=== PATIENT | female | born 1995 | race American Indian/Alaskan Native ===

== ENCOUNTER 2018-07-26 16:19 | Emergency (ER) | payer MEDICAID, OTHER, SELFPAY ==
[2018-07-26 16:22] VITALS: BP 100/60; PULSE 73; RESP 18; TEMP 36.6; O2SAT 99; BMI 21.5
--- NOTE | 2018-07-26 16:26 | ED.FEMALEGU ---
HPI - Female Genitourinary <ISAÍAS Pacheco - Last Filed: 07/26/18 22:28> General Chief complaint: Urogenital-Female Stated complaint: BLEEDING Time Seen by Provider: 07/26/18 16:26 Source: patient Mode of arrival: ambulatory Limitations: no limitations History of Present Illness HPI Narrative: Healthy 22-year-old female that is a nonsmoker here for concern of vaginal spotting since earlier today. She said that she has had a positive home test and started spider earlier today. She denies any abdominal pain or cramping. No nausea vomiting. She denies any urinary symptoms. She reports that she noticed pinkish discharge when she wiped with toilet paper while using the restroom. She denies any trauma to the abdomen. She does not know her blood type. This is her 1st . Complaint: vaginal bleeding Related Data Home Medications Medication Instructions Recorded Confirmed ALBUTEROL SULFATE (Ventolin / 2 puff INH Q4H PRN #0 08/21/10 Proventil) Fluticasone Propionate/Salme #0 08/21/10 (Advair Diskus 250/50) Allergies Allergy/AdvReac Type Severity Reaction Status Date / Time Amoxicillin Allergy Mild Uncoded 10/10/17 13:08 Penicillin Allergy Mild Uncoded 10/10/17 13:08 Review of Systems <ISAÍAS Pacheco - Last Filed: 07/26/18 22:28> Constitutional Denies chills, Denies fever(s), Denies lethargy and Denies weakness Eyes Denies change in vision, Denies eye discharge, Denies irritation and Denies loss of vision ENT Ears, Nose, Mouth, and Throat: Denies change in voice, Denies neck pain, Denies sore throat and Denies throat swelling Cardiovascular Denies chest pain, Denies irregular heart rhythm, Denies lightheadedness, Denies palpitations and Denies orthopnea Respiratory Denies wheezing Genitourinary Comments: Vaginal spotting while Musculoskeletal Denies neck pain Integumentary/Breasts Denies pruritus, Denies erythema, Denies rash and Denies wounds Neurologic Denies confusion, Denies loss of vision and Denies weakness Psychiatric Denies anxiety, Denies confusion, Denies depression, Denies homicidal ideation and Denies suicidal ideation Endocrine Denies palpitations Hematologic/Lymphatic Denies easy bruising Allergic/Immunologic Denies urticaria, Denies throat swelling and Denies wheezing Exam <ISAÍAS Pacheco - Last Filed: 07/26/18 22:28> Initial Vital Signs Initial Vital Signs: Vital Signs Temperature 97.8 F 07/26/18 16:22 Pulse Rate 73 07/26/18 16:22 Respiratory Rate 18 07/26/18 16:22 Blood Pressure 100/60 07/26/18 16:22 Pulse Oximetry 99 07/26/18 16:22 Const General: cooperative and well developed Nutritional Appearance: well nourished Orientation: alert, awake, oriented x3 and not confused [facility] Mouth: oral mucosae normal and moist mucous membranes Eyes Sclera: sclerae normal Cornea: corneas normal Pupils: PERRL EOM: EOM intact bilaterally Resp Effort & Inspection: normal respiratory effort, able to speak in complete sentences, no respiratory distress and no use of accessory muscles Auscultation: clear to auscultation bilaterally, no rales, no rhonchi and no wheezes Cardio Rate: regular rate Rhythm: regular rhythm Heart Sounds: no click, no gallops, no murmurs and no rubs Pulses: normal peripheral pulses GI Inspection: non-distended Palpation: soft, no hepatosplenomegaly, No guarding, No pulsatile mass and No tender Auscultation: normal bowel sounds Skin General: no rashes or lesions noted, No jaundice and No petechiae Neuro General: alert, oriented x3, gait normal and no focal motor deficits Speech: speech normal <José Luis Lux DO - Last Filed: 07/27/18 07:03> Initial Vital Signs Initial Vital Signs: Vital Signs Temperature 97.8 F 07/26/18 16:22 Pulse Rate 73 07/26/18 16:22 Respiratory Rate 18 07/26/18 16:22 Blood Pressure 100/60 07/26/18 16:22 Pulse Oximetry 99 07/26/18 16:22 Course <ISAÍAS Pacheco - Last Filed: 07/26/18 22:28> Orders Ordered: ED Orders 07/26/18 16:49 US OB <= 14 weeks fetus Stat 07/26/18 17:20 ABO RH Type Stat Complete Blood Count AUTO DIFF Stat Comprehensive Metabolic Panel Stat HCG Quantitative Stat Urine Microscopic Stat Vital Signs - 8 hr 07/26/18 16:22 07/26/18 18:06 07/26/18 18:33 Temperature 97.8 F 98.3 F Pulse Rate 73 66 67 Respiratory Rate 18 18 16 Blood Pressure 100/60 Blood Pressure [Right Arm] 95/41 L 109/57 L Pulse Oximetry 99 100 99 <José Luis Lux DO - Last Filed: 07/27/18 07:03> Orders Ordered: ED Orders 07/26/18 16:49 US OB <= 14 weeks fetus Stat 07/26/18 17:20 ABO RH Type Stat Complete Blood Count AUTO DIFF Stat Comprehensive Metabolic Panel Stat HCG Quantitative Stat Urine Microscopic Stat Vital Signs - 8 hr 07/26/18 16:22 07/26/18 18:06 07/26/18 18:33 Temperature 97.8 F 98.3 F Pulse Rate 73 66 67 Respiratory Rate 18 18 16 Blood Pressure 100/60 Blood Pressure [Right Arm] 95/41 L 109/57 L Pulse Oximetry 99 100 99 MDM - Female Genitourinary <ISAÍAS Pacheco - Last Filed: 07/26/18 22:28> Lab Data Result diagrams: 07/26/18 17:20 07/26/18 17:20 Lab Results 07/26/18 07/26/18 07/26/18 Range/Units 17:20 17:20 17:20 WBC 11.6 H (4.5-11.0) X10^3/uL RBC 4.10 (4.0-5.2) X10^6/uL Hgb 12.5 (12.0-16.0) g/dL Hct 37.9 (36-46) % MCV 92.4 (80-100) fL MCH 30.6 (26-34) PG MCHC 33.1 (30-36) % RDW 12.7 (11.6-14.8) % Plt Count 291 (150-400) X10^3/uL Neut % (Auto) 73.9 (50-75) % Lymph % (Auto) 17.4 L (25-40) % [place] % (Auto) 7.9 (3-14) % Eos % (Auto) 0.4 L (2-4) % Baso % (Auto) 0.4 (0-2) % Neut # (Auto) 8600 H (2887-5098) /uL Lymph # (Auto) 2000 (2227-5393) /uL [place] # (Auto) 900 (0-900) /uL Eos # (Auto) 100 (0-450) /uL Baso # (Auto) 0 (0-100) /uL Sodium 137 (137-145) mmol/L Potassium 3.9 (3.4-5.1) mmol/L Chloride 101 (98-107) mmol/L Carbon Dioxide 25 (22-32) mmol/L BUN 8 (7-17) mg/dL Creatinine 0.50 L (0.52-1.04) mg/dL Estimated GFR > 60.0 (>60) mL/min BUN/Creatinine Ratio 16.0 (6-22) Glucose 86 (70-100) mg/dL Calcium 9.4 (8.4-10.2) mg/dL Total Bilirubin 0.2 (0.2-1.3) mg/dL AST 24 (14-36) IU/L ALT 23 (9-52) IU/L Alkaline Phosphatase 50 (38-126) U/L Total Protein 7.8 (6.3-8.2) g/dL Albumin 4.5 (3.5-5.0) g/dL Globulin 3.3 (1.7-4.1) g/dL Albumin/Globulin Ratio 1.4 (1.0-2.8) HCG, Quant 15503 mIU/mL Urine RBC (0-5/HPF) Urine WBC (0-5/HPF) Ur Squamous Epith Cells Calcium Oxalate Crystal (None) Urine Bacteria (None) Ur Culture Indicated? Micro UA Comment Blood Type O Positive 07/26/18 Range/Units 17:20 WBC (4.5-11.0) X10^3/uL RBC (4.0-5.2) X10^6/uL Hgb (12.0-16.0) g/dL Hct (36-46) % MCV (80-100) fL MCH (26-34) PG MCHC (30-36) % RDW (11.6-14.8) % Plt Count (150-400) X10^3/uL Neut % (Auto) (50-75) % Lymph % (Auto) (25-40) % [place] % (Auto) (3-14) % Eos % (Auto) (2-4) % Baso % (Auto) (0-2) % Neut # (Auto) (3329-3014) /uL Lymph # (Auto) (1011-0997) /uL [place] # (Auto) (0-900) /uL Eos # (Auto) (0-450) /uL Baso # (Auto) (0-100) /uL Sodium (137-145) mmol/L Potassium (3.4-5.1) mmol/L Chloride (98-107) mmol/L Carbon Dioxide (22-32) mmol/L BUN (7-17) mg/dL Creatinine (0.52-1.04) mg/dL Estimated GFR (>60) mL/min BUN/Creatinine Ratio (6-22) Glucose (70-100) mg/dL Calcium (8.4-10.2) mg/dL Total Bilirubin (0.2-1.3) mg/dL AST (14-36) IU/L ALT (9-52) IU/L Alkaline Phosphatase (38-126) U/L Total Protein (6.3-8.2) g/dL Albumin (3.5-5.0) g/dL Globulin (1.7-4.1) g/dL Albumin/Globulin Ratio (1.0-2.8) HCG, Quant mIU/mL Urine RBC 1-5/hpf (0-5/HPF) Urine WBC 1-5/hpf (0-5/HPF) Ur Squamous Epith Cells 5-10 /hpf H Calcium Oxalate Crystal Moderate H (None) Urine Bacteria Few (2-10) H (None) Ur Culture Indicated? Culture not indicate Micro UA Comment Blood Type Point of Care Testing Test Results Positive Urine Dip Bedside Urine Glucose Negative Bedside Urine Bilirubin - Negative Bedside Urine Ketone - Negative Urine Specific [place] 1.030 Bedside Urine Occult Blood ++ Bedside Urine pH 6.0 Bedside Urine Protein +/- 15 Bedside Urine Urobilinogen - Negative Bedside Urine Nitrite - Negative Bedside Urine Leukocytes ++ 125 Esterase Imaging Data Ob ultrasound: Radiologist's impression: [address] [address] Ultrasound Report Signed Patient: Magalie Higgins [facility]#: [id number] : 1995Acct:[id number] Age/Sex: FDate of Service: 07/26/18 Loc: ED Accession Number: [id number] Procedure: US OB <= 14 weeks fetus Ordering Provider: Heriberto Lorenzo PROCEDURE: US OB <= 14 WEEKS FETUS INDICATIONS: First trimester with spotting OUTSIDE/PRIOR DATING DATA: Last menstrual period (LMP): Not available. LMP-based estimated date of delivery (LOPEZ): Not available. First dating scan (date and location): 07/26/2018. Estimated date of delivery (LOPEZ) from first dating scan: 03/16/2019. TECHNIQUE: Real-time scanning was performed of the fetus and maternal pelvic organs, with image documentation. Endovaginal scanning was also performed to better visualize the fetus and maternal ovaries. COMPARISON: None. FINDINGS: Embryo: There is an IUP. Based on the crown-rump length, the estimated gestational age is 6 weeks 5 days. cardiac activity is present there is heart rate 124 bpm. A normal yolk sac is present. No vishal-gestational bleed. Measurement variability in dating: +/- 4 weeks by LMP, +/- 7 days by mean sac diameter (use before 6 weeks gestation if crown-rump length not able to be measured), +/- 5 days by crown-rump length (up to 8 weeks 6 days gestation), +/- 7 days by crown-rump length (up to 13 weeks 6 days gestation). Maternal organs: Ovaries are normal. Limited images through the kidneys demonstrate no hydronephrosis. IMPRESSION: 1. A single living intrauterine gestation with the estimated gestational age of 6 weeks 5 days corresponding to ultrasound LOPEZ 03/16/2019. 2. No ultrasound findings to explain spotting. Dictated by: Elissa Kate M.D. on 07/26/2018 at 18:02 Approved by: Elissa Kate M.D. on 07/26/2018 at 18:05 [facility] Narrative Medical decision making narrative: CBC and Chem panel were obtained were unremarkable. HCG quant was at 84 kg. ABO Rh resulted as O positive. Ultrasound shows a 6 week 5-day-old intrauterine a single with viable heart rate. She has not established OB as of yet she is referred to OB. [id number] Tylenol as needed for any discomfort. For any worsening bleeding or problems return to the emergency room. Call OB at number provided to schedule follow-up appointment. <José Luis Lux, - Last Filed: 07/27/18 07:03> Lab Data Lab Results 07/26/18 07/26/18 07/26/18 Range/Units 17:20 17:20 17:20 WBC 11.6 H (4.5-11.0) X10^3/uL RBC 4.10 (4.0-5.2) X10^6/uL Hgb 12.5 (12.0-16.0) g/dL Hct 37.9 (36-46) % MCV 92.4 (80-100) fL MCH 30.6 (26-34) PG MCHC 33.1 (30-36) % RDW 12.7 (11.6-14.8) % Plt Count 291 (150-400) X10^3/uL Neut % (Auto) 73.9 (50-75) % Lymph % (Auto) 17.4 L (25-40) % [place] % (Auto) 7.9 (3-14) % Eos % (Auto) 0.4 L (2-4) % Baso % (Auto) 0.4 (0-2) % Neut # (Auto) 8600 H (7059-7485) /uL Lymph # (Auto) 2000 (2011-6607) /uL [place] # (Auto) 900 (0-900) /uL Eos # (Auto) 100 (0-450) /uL Baso # (Auto) 0 (0-100) /uL Sodium 137 (137-145) mmol/L Potassium 3.9 (3.4-5.1) mmol/L Chloride 101 (98-107) mmol/L Carbon Dioxide 25 (22-32) mmol/L BUN 8 (7-17) mg/dL Creatinine 0.50 L (0.52-1.04) mg/dL Estimated GFR > 60.0 (>60) mL/min BUN/Creatinine Ratio 16.0 (6-22) Glucose 86 (70-100) mg/dL Calcium 9.4 (8.4-10.2) mg/dL Total Bilirubin 0.2 (0.2-1.3) mg/dL AST 24 (14-36) IU/L ALT 23 (9-52) IU/L Alkaline Phosphatase 50 (38-126) U/L Total Protein 7.8 (6.3-8.2) g/dL Albumin 4.5 (3.5-5.0) g/dL Globulin 3.3 (1.7-4.1) g/dL Albumin/Globulin Ratio 1.4 (1.0-2.8) HCG, Quant 17363 mIU/mL Urine RBC (0-5/HPF) Urine WBC (0-5/HPF) Ur Squamous Epith Cells Calcium Oxalate Crystal (None) Urine Bacteria (None) Ur Culture Indicated? Micro UA Comment Blood Type O Positive 07/26/18 Range/Units 17:20 WBC (4.5-11.0) X10^3/uL RBC (4.0-5.2) X10^6/uL Hgb (12.0-16.0) g/dL Hct (36-46) % MCV (80-100) fL MCH (26-34) PG MCHC (30-36) % RDW (11.6-14.8) % Plt Count (150-400) X10^3/uL Neut % (Auto) (50-75) % Lymph % (Auto) (25-40) % [place] % (Auto) (3-14) % Eos % (Auto) (2-4) % Baso % (Auto) (0-2) % Neut # (Auto) (8381-5064) /uL Lymph # (Auto) (9580-0323) /uL [place] # (Auto) (0-900) /uL Eos # (Auto) (0-450) /uL Baso # (Auto) (0-100) /uL Sodium (137-145) mmol/L Potassium (3.4-5.1) mmol/L Chloride (98-107) mmol/L Carbon Dioxide (22-32) mmol/L BUN (7-17) mg/dL Creatinine (0.52-1.04) mg/dL Estimated GFR (>60) mL/min BUN/Creatinine Ratio (6-22) Glucose (70-100) mg/dL Calcium (8.4-10.2) mg/dL Total Bilirubin (0.2-1.3) mg/dL AST (14-36) IU/L ALT (9-52) IU/L Alkaline Phosphatase (38-126) U/L Total Protein (6.3-8.2) g/dL Albumin (3.5-5.0) g/dL Globulin (1.7-4.1) g/dL Albumin/Globulin Ratio (1.0-2.8) HCG, Quant mIU/mL Urine RBC 1-5/hpf (0-5/HPF) Urine WBC 1-5/hpf (0-5/HPF) Ur Squamous Epith Cells 5-10 /hpf H Calcium Oxalate Crystal Moderate H (None) Urine Bacteria Few (2-10) H (None) Ur Culture Indicated? Culture not indicate Micro UA Comment Blood Type Point of Care Testing Test Results Positive Urine Dip Bedside Urine Glucose Negative Bedside Urine Bilirubin - Negative Bedside Urine Ketone - Negative Urine Specific [place] 1.030 Bedside Urine Occult Blood ++ Bedside Urine pH 6.0 Bedside Urine Protein +/- 15 Bedside Urine Urobilinogen - Negative Bedside Urine Nitrite - Negative Bedside Urine Leukocytes ++ 125 Esterase Discharge Plan Departure Patient Disposition: Home Clinical Impression: , threatened Discharge Date/Time: 07/26/18 18:44 Interventions: ED Discharge Assessment Last Done: 07/26/18 18:44 Instructions: DI for Threatened Activity Restrictions/Additional Instructions: Laboratory results today were unremarkable. Ultrasound shows intrauterine at 6 week 5-day-old. Call OB at number provided to schedule follow-up appointment. Pelvic rest until cleared by Ob to reduce risk of a threatened . May use [id number] Tylenol as needed for any discomfort or cramping. For any worsening symptoms return to the emergency room. Your blood type is O positive. See OB next week. Prescriptions: No Action ALBUTEROL SULFATE (Ventolin / Proventil) 2 puff INH Q4H PRN Qty: 0 RF: 0 Fluticasone Propionate/Salme (Advair Diskus 250/50) Qty: 0 RF: 0 Referrals: Keya Chavez MD [Physician] - <José Luis Lux DO - Last Filed: 07/27/18 07:03> Cosign ED Attending Cosdellature Attestation: I was available for consultation during this patient's emergency department encounter
--- NOTE | 2018-07-26 16:49 | DI.US.S_ITS ---
PROCEDURE: US OB <= 14 WEEKS FETUS INDICATIONS: First trimester with spotting OUTSIDE/PRIOR DATING DATA: Last menstrual period (LMP): Not available. LMP-based estimated date of delivery (LOPEZ): Not available. First dating scan (date and location): 07/26/2018. Estimated date of delivery (LOPEZ) from first dating scan: 03/16/2019. TECHNIQUE: Real-time scanning was performed of the fetus and maternal pelvic organs, with image documentation. Endovaginal scanning was also performed to better visualize the fetus and maternal ovaries. COMPARISON: None. FINDINGS: Embryo: There is an IUP. Based on the crown-rump length, the estimated gestational age is 6 weeks 5 days. cardiac activity is present there is heart rate 124 bpm. A normal yolk sac is present. No vishal-gestational bleed. Measurement variability in dating: +/- 4 weeks by LMP, +/- 7 days by mean sac diameter (use before 6 weeks gestation if crown-rump length not able to be measured), +/- 5 days by crown-rump length (up to 8 weeks 6 days gestation), +/- 7 days by crown-rump length (up to 13 weeks 6 days gestation). Maternal organs: Ovaries are normal. Limited images through the kidneys demonstrate no hydronephrosis. IMPRESSION: 1. A single living intrauterine gestation with the estimated gestational age of 6 weeks 5 days corresponding to ultrasound LOPEZ 03/16/2019. 2. No ultrasound findings to explain spotting. Dictated by: Elissa Kate M.D. on 07/26/2018 at 18:02 Approved by: Elissa Kate M.D. on 07/26/2018 at 18:05
[2018-07-26 17:29] LABS: Add Manual Diff / Slide Review NO; Basophils Absolute Auto 0 /uL (0-100); Basophils Percent Auto 0.4 % (0-2); Eosinophils Absolute Auto 100 /uL (0-450); Eosinophils Percent Auto 0.4 % (2-4); Hematocrit 37.9 % (36-46); Hemoglobin 12.5 g/dL (12.0-16.0); Lymphocytes Absolute Auto 2000 /uL (1100-4500); Lymphocytes Percent Auto 17.4 % (25-40); Mean Corpuscular HGB Conc 33.1 % (30-36); Mean Corpuscular Hemoglobin 30.6 PG (26-34); Mean Corpuscular Volume 92.4 fL (80-100); Monocytes Absolute Auto 900 /uL (0-900); Monocytes Percent Auto 7.9 % (3-14); Neutrophils Absolute Auto 8600 /uL (1500-7000); Neutrophils Percent Auto 73.9 % (50-75); Platelet Count 291 X10^3/uL (150-400); Red Cell Distribution Width 12.7 % (11.6-14.8); White Blood Cell Count 11.6 X10^3/uL (4.5-11.0)
[2018-07-26 17:39] LABS: Alanine Aminotransferase 23 IU/L (9-52); Albumin 4.5 g/dL (3.5-5.0); Albumin Globulin Ratio 1.4 (1.0-2.8); Alkaline Phosphatase 50 U/L (38-126); Aspartate Aminotransferase 24 IU/L (14-36); Bilirubin Total 0.2 mg/dL (0.2-1.3); Blood Urea Nitrogen 8 mg/dL (7-17); Calcium 9.4 mg/dL (8.4-10.2); Carbon Dioxide 25 mmol/L (22-32); Chloride 101 mmol/L (98-107); Estimated Glomerular Filt Rate > 60.0 mL/min (>60); Globulin 3.3 g/dL (1.7-4.1); Glucose 86 mg/dL (70-100); HEMOLYSIS < 15 (0-50); Potassium 3.9 mmol/L (3.4-5.1); Sodium 137 mmol/L (137-145); Total Protein 7.8 g/dL (6.3-8.2)
[2018-07-26 17:47] LABS: Bacteria Urine Few (2-10); Calcium Oxalate Crystals Urine Moderate; RBC Urine 1-5/HPF (0-5/HPF); Squamous Epithelial Cell Urine 5-10 /HPF; WBC Urine 1-5/HPF (0-5/HPF)
[2018-07-26 18:06] VITALS: BP 95/41; PULSE 66; RESP 18; O2SAT 100
[2018-07-26 18:20] LABS: HCG Quantitative /Beta subunit 84330 mIU/mL
[2018-07-26 18:33] VITALS: BP 109/57; PULSE 67; RESP 16; TEMP 36.8; O2SAT 99
== END 2018-07-26 18:44 | disposition home or self-care (01) ==
PROVIDERS: Emergency Provider Nurse Practitioner Family; Family Provider Family Medicine
DX: O20.0 Threatened abortion (principal); Z3A.01 Less than 8 weeks gestation of pregnancy
CPT/HCPCS: 36415; 76801; 76817; 80053; 81003; 81015; 81025; 84702; 85025; 86900; 86901; 99282; 99284

== ENCOUNTER 2018-08-08 22:50 | Emergency (ER) | payer MEDICAID, OTHER, SELFPAY ==
[2018-08-08 22:50] VITALS: BP 123/70; PULSE 90; RESP 14; TEMP 36.8; O2SAT 98; BMI 21.5
[2018-08-08 23:16] LABS: Bacteria Urine Few (2-10); RBC Urine 0-1/HPF (0-5/HPF); Squamous Epithelial Cell Urine 1-5 /HPF; WBC Urine 0-1/HPF (0-5/HPF)
[2018-08-08 23:17] LABS: Culture Indicated Urine Specimen Cultured
--- NOTE | 2018-08-08 23:26 | DI.US.S_ITS ---
PROCEDURE: US OB <= 14 WEEKS FETUS INDICATIONS: BLEEDING OUTSIDE/PRIOR DATING DATA: Last menstrual period (LMP): Not available. LMP-based estimated date of delivery (LOPEZ): Not available. First dating scan (date and location): 07/26/18. Estimated date of delivery (LOPEZ) from first dating scan: 03/16/19. TECHNIQUE: Real-time scanning was performed of the fetus and maternal pelvic organs, with image documentation. Endovaginal scanning was also performed to better visualize the fetus and maternal ovaries. COMPARISON: [facility], OB <= 14 WEEKS FETUS, 07/26/2018, 17:09. FINDINGS: Embryo: The single living intrauterine gestation measures 2.2 cm crown-rump length correlating with a gestational age of 8 weeks 6 days, plus or -5 days, and heart rate is 180 beats per minute. Measurement variability in dating: +/- 4 weeks by LMP, +/- 7 days by mean sac diameter (use before 6 weeks gestation if crown-rump length not able to be measured), +/- 5 days by crown-rump length (up to 8 weeks 6 days gestation), +/- 7 days by crown-rump length (up to 13 weeks 6 days gestation). Maternal organs: Ovaries normal considering gestational status. Limited images through the kidneys demonstrate no hydronephrosis. IMPRESSION: Single living intrauterine gestation currently at 8 weeks 6 days gestational age with appropriate interval growth from the comparison study 07/26/18. Followup anatomic survey at 21 weeks gestation is recommended. Dictated by: August Davidson M.D. on 08/09/2018 at 10:29 Approved by: August Davidson M.D. on 08/09/2018 at 10:31
--- NOTE | 2018-08-08 23:36 | ED.FEMALEGU ---
HPI - Female Genitourinary General Chief complaint: Urogenital-Female Stated complaint: 8 wks , bleeding Time Seen by Provider: 08/08/18 23:22 Source: patient Mode of arrival: ambulatory History of Present Illness HPI Narrative: Patient is a 22-year-old female presents with vaginal bleeding. She is currently 8 weeks . She denies any abdominal cramping. She says she had quite a large amount of bleeding when she went to the bathroom like her menses. 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 Related Data Home Medications Medication Instructions Recorded Confirmed ALBUTEROL SULFATE (Ventolin / 2 puff INH Q4H PRN #0 08/21/10 Proventil) Fluticasone Propionate/Salme #0 08/21/10 (Advair Diskus 250/50) Previous Rx's Medication Instructions Recorded cephalexin [Keflex] 500 mg PO TID #15 cap 08/09/18 Allergies Allergy/AdvReac Type Severity Reaction Status Date / Time amoxicillin AdvReac Verified 08/08/18 23:00 Penicillins AdvReac Verified 08/08/18 23:00 Review of Systems Review of Systems ROS Unobtainable: All systems reviewed & are unremarkable except as noted in HPI and below Constitutional Denies chills, Denies fever(s), Denies lethargy and Denies weakness Cardiovascular Denies dyspnea and Denies dyspnea on exertion Respiratory Denies cough, Denies dyspnea, Denies dyspnea on exertion and Denies wheezing Gastrointestinal Gastrointestinal: Denies abdominal pain, Denies change in bowel habits, Denies diarrhea, Denies nausea and Denies vomiting Musculoskeletal Denies back pain, Denies muscle weakness, Denies numbness and Denies tingling Integumentary/Breasts Denies pruritus, Denies erythema, Denies rash and Denies wounds Neurologic Denies numbness, Denies tingling and Denies weakness Allergic/Immunologic Denies wheezing [facility] Medical History Patient denies medical problems (Acute) Social History Smoking Status: Never smoker Social History Smoking Status: Never smoker Exam Initial Vital Signs Initial Vital Signs: Vital Signs Temperature 98.3 F 08/08/18 22:50 Pulse Rate 90 08/08/18 22:50 Respiratory Rate 14 08/08/18 22:50 Blood Pressure 123/70 08/08/18 22:50 Pulse Oximetry 98 08/08/18 22:50 GENERAL: Well-appearing, well-nourished and in no acute distress. HEENT: Head atraumatic,EOMI, pupils reactive, CARDIOVASCULAR: Regular rate and rhythm without murmurs, rubs or gallops. RESPIRATORY: Breath sounds equal bilaterally, no wheezes rales or rhonchi. ABDOMEN: Soft, nontender. Normoactive bowel sounds all 4 quadrants. No guarding or rebound. : No CVA tenderness EXTREMITIES: Normal range of motion, no clubbing or edema. Neurovascularly intact NEUROLOGICAL: Alert and oriented x4.Normal gait and speech. Cranial nerves II through XII grossly intact. SKIN: Warm, dry, no laceration, no petechiae, no rashes or lesions. Course Orders Ordered: ED Orders 08/08/18 22:54 Urine Culture Stat Urine Microscopic Stat 08/08/18 23:26 US OB <= 14 weeks fetus Stat 08/08/18 23:40 Complete Blood Count AUTO DIFF Stat Comprehensive Metabolic Panel Stat HCG Quantitative Stat Discontinued Medications Sodium Chloride (Normal Saline 0.9%) 1,000 mls @ 1,000 mls/hr IV BOLUS ONE Stop: 08/09/18 00:24 Last Infusion: 08/09/18 01:00 Dose: 0 mls/hr Admin: 08/08/18 23:50 Dose: 1,000 mls/hr Vital Signs - 8 hr 08/08/18 22:50 08/09/18 00:19 08/09/18 01:32 Temperature 98.3 F 98.4 F Pulse Rate 90 81 81 Respiratory Rate 14 20 20 Blood Pressure 123/70 107/52 L Blood Pressure [Left Arm] 107/50 L Pulse Oximetry 98 100 99 MDM - Female Genitourinary Lab Data Attestation: I reviewed the patient's lab results. Result diagrams: 08/08/18 23:40 08/08/18 23:40 Lab Results 08/08/18 08/08/18 08/08/18 Range/Units 22:54 23:40 23:40 WBC 11.7 H (4.5-11.0) X10^3/uL RBC 4.02 (4.0-5.2) X10^6/uL Hgb 12.4 (12.0-16.0) g/dL Hct 36.6 (36-46) % MCV 91.1 (80-100) fL MCH 30.9 (26-34) PG MCHC 33.9 (30-36) % RDW 12.8 (11.6-14.8) % Plt Count 311 (150-400) X10^3/uL Neut % (Auto) 62.4 (50-75) % Lymph % (Auto) 25.7 (25-40) % Iron % (Auto) 10.7 (3-14) % Eos % (Auto) 0.8 L (2-4) % Baso % (Auto) 0.4 (0-2) % Neut # (Auto) 7300 H (0878-7595) /uL Lymph # (Auto) 3000 (4850-6036) /uL Iron # (Auto) 1200 H (0-900) /uL Eos # (Auto) 100 (0-450) /uL Baso # (Auto) 0 (0-100) /uL Sodium 139 (137-145) mmol/L Potassium 4.0 (3.4-5.1) mmol/L Chloride 103 (98-107) mmol/L Carbon Dioxide 22 (22-32) mmol/L BUN 9 (7-17) mg/dL Creatinine 0.50 L (0.52-1.04) mg/dL Estimated GFR > 60.0 (>60) mL/min BUN/Creatinine Ratio 18.0 (6-22) Glucose 81 (70-100) mg/dL Calcium 8.8 (8.4-10.2) mg/dL Total Bilirubin 0.2 (0.2-1.3) mg/dL AST 29 (14-36) IU/L ALT 28 (9-52) IU/L Alkaline Phosphatase 57 (38-126) U/L Total Protein 8.1 (6.3-8.2) g/dL Albumin 4.5 (3.5-5.0) g/dL Globulin 3.6 (1.7-4.1) g/dL Albumin/Globulin Ratio 1.3 (1.0-2.8) HCG, Quant 596055 mIU/mL Urine RBC 0-1/hpf (0-5/HPF) Urine WBC 0-1/hpf (0-5/HPF) Ur Squamous Epith Cells 1-5 /hpf Urine Bacteria Few (2-10) H (None) Ur Culture Indicated? Specimen cultured Blood Type 08/08/18 Range/Units 23:40 WBC (4.5-11.0) X10^3/uL RBC (4.0-5.2) X10^6/uL Hgb (12.0-16.0) g/dL Hct (36-46) % MCV (80-100) fL MCH (26-34) PG MCHC (30-36) % RDW (11.6-14.8) % Plt Count (150-400) X10^3/uL Neut % (Auto) (50-75) % Lymph % (Auto) (25-40) % Iron % (Auto) (3-14) % Eos % (Auto) (2-4) % Baso % (Auto) (0-2) % Neut # (Auto) (5246-8960) /uL Lymph # (Auto) (2314-4124) /uL Iron # (Auto) (0-900) /uL Eos # (Auto) (0-450) /uL Baso # (Auto) (0-100) /uL Sodium (137-145) mmol/L Potassium (3.4-5.1) mmol/L Chloride (98-107) mmol/L Carbon Dioxide (22-32) mmol/L BUN (7-17) mg/dL Creatinine (0.52-1.04) mg/dL Estimated GFR (>60) mL/min BUN/Creatinine Ratio (6-22) Glucose (70-100) mg/dL Calcium (8.4-10.2) mg/dL Total Bilirubin (0.2-1.3) mg/dL AST (14-36) IU/L ALT (9-52) IU/L Alkaline Phosphatase (38-126) U/L Total Protein (6.3-8.2) g/dL Albumin (3.5-5.0) g/dL Globulin (1.7-4.1) g/dL Albumin/Globulin Ratio (1.0-2.8) HCG, Quant mIU/mL Urine RBC (0-5/HPF) Urine WBC (0-5/HPF) Ur Squamous Epith Cells Urine Bacteria (None) Ur Culture Indicated? 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 It also appears that she may have a slight UTI as well. At this time recommended follow-up with her OB in regards to vaginal bleeding. Unfortunately patient left without her prescription for UTI, we tried calling of patient is by all numbers listed unfortunately no way to leave a voicemail, stating that the caller is simply unavailable. Discharge Plan Departure Patient Disposition: Home Clinical Impression: , threatened Discharge Date/Time: 08/09/18 01:34 Interventions: ED Discharge Assessment Last Done: 08/09/18 01:32 Instructions: DI for Threatened Activity Restrictions/Additional Instructions: *You have been diagnosed with threatened *What to do: HCG 175,650, ultrasound confirms a live intrauterine . Pelvic rest, nothing in her out of vagina *Continue to take medications as directed Continue vitamins *Follow up with your primary care provider in 2-3 days *Return to ER if you should have increasing abdominal pain, increasing vaginal bleeding or any new, worsening or concerning symptoms Prescriptions: New cephalexin [Keflex] 500 mg capsule 500 mg PO TID Qty: 15 RF: 0 No Action ALBUTEROL SULFATE (Ventolin / Proventil) 2 puff INH Q4H PRN Qty: 0 RF: 0 Fluticasone Propionate/Salme (Advair Diskus 250/50) Qty: 0 RF: 0
--- NOTE | 2018-08-08 23:39 | ED_ITS ---
HPI - Female Genitourinary General Chief complaint: Urogenital-Female Stated complaint: 8 wks , bleeding Time Seen by Provider: 08/08/18 23:22 Source: patient Mode of arrival: ambulatory History of Present Illness HPI Narrative: Patient is a 22-year-old female presents with vaginal bleeding. She is currently 8 weeks . She denies any abdominal cramping. She says she had quite a large amount of bleeding when she went to the bathroom like her menses. 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 Related Data Home Medications Medication Instructions Recorded Confirmed ALBUTEROL SULFATE (Ventolin / 2 puff INH Q4H PRN #0 08/21/10 Proventil) Fluticasone Propionate/Salme #0 08/21/10 (Advair Diskus 250/50) Previous Rx's Medication Instructions Recorded cephalexin [Keflex] 500 mg PO TID #15 cap 08/09/18 Allergies Allergy/AdvReac Type Severity Reaction Status Date / Time amoxicillin AdvReac Verified 08/08/18 23:00 Penicillins AdvReac Verified 08/08/18 23:00 Review of Systems Review of Systems ROS Unobtainable: All systems reviewed & are unremarkable except as noted in HPI and below Constitutional Denies chills, Denies fever(s), Denies lethargy and Denies weakness Cardiovascular Denies dyspnea and Denies dyspnea on exertion Respiratory Denies cough, Denies dyspnea, Denies dyspnea on exertion and Denies wheezing Gastrointestinal Gastrointestinal: Denies abdominal pain, Denies change in bowel habits, Denies diarrhea, Denies nausea and Denies vomiting Musculoskeletal Denies back pain, Denies muscle weakness, Denies numbness and Denies tingling Integumentary/Breasts Denies pruritus, Denies erythema, Denies rash and Denies wounds Neurologic Denies numbness, Denies tingling and Denies weakness Allergic/Immunologic Denies wheezing [facility] Medical History Patient denies medical problems (Acute) Social History Smoking Status: Never smoker Social History Smoking Status: Never smoker Exam Initial Vital Signs Initial Vital Signs: Vital Signs Temperature 98.3 F 08/08/18 22:50 Pulse Rate 90 08/08/18 22:50 Respiratory Rate 14 08/08/18 22:50 Blood Pressure 123/70 08/08/18 22:50 Pulse Oximetry 98 08/08/18 22:50 GENERAL: Well-appearing, well-nourished and in no acute distress. HEENT: Head atraumatic,EOMI, pupils reactive, CARDIOVASCULAR: Regular rate and rhythm without murmurs, rubs or gallops. RESPIRATORY: Breath sounds equal bilaterally, no wheezes rales or rhonchi. ABDOMEN: Soft, nontender. Normoactive bowel sounds all 4 quadrants. No guarding or rebound. : No CVA tenderness EXTREMITIES: Normal range of motion, no clubbing or edema. Neurovascularly intact NEUROLOGICAL: Alert and oriented x4.Normal gait and speech. Cranial nerves II through XII grossly intact. SKIN: Warm, dry, no laceration, no petechiae, no rashes or lesions. Course Orders Ordered: ED Orders 08/08/18 22:54 Urine Culture Stat Urine Microscopic Stat 08/08/18 23:26 US OB <= 14 weeks fetus Stat 08/08/18 23:40 Complete Blood Count AUTO DIFF Stat Comprehensive Metabolic Panel Stat HCG Quantitative Stat Discontinued Medications Sodium Chloride (Normal Saline 0.9%) 1,000 mls @ 1,000 mls/hr IV BOLUS ONE Stop: 08/09/18 00:24 Last Infusion: 08/09/18 01:00 Dose: 0 mls/hr Admin: 08/08/18 23:50 Dose: 1,000 mls/hr Vital Signs - 8 hr 08/08/18 22:50 08/09/18 00:19 08/09/18 01:32 Temperature 98.3 F 98.4 F Pulse Rate 90 81 81 Respiratory Rate 14 20 20 Blood Pressure 123/70 107/52 L Blood Pressure [Left Arm] 107/50 L Pulse Oximetry 98 100 99 MDM - Female Genitourinary Lab Data Attestation: I reviewed the patient's lab results. Result diagrams: 08/08/18 23:40 08/08/18 23:40 Lab Results 08/08/18 08/08/18 08/08/18 Range/Units 22:54 23:40 23:40 WBC 11.7 H (4.5-11.0) X10^3/uL RBC 4.02 (4.0-5.2) X10^6/uL Hgb 12.4 (12.0-16.0) g/dL Hct 36.6 (36-46) % MCV 91.1 (80-100) fL MCH 30.9 (26-34) PG MCHC 33.9 (30-36) % RDW 12.8 (11.6-14.8) % Plt Count 311 (150-400) X10^3/uL Neut % (Auto) 62.4 (50-75) % Lymph % (Auto) 25.7 (25-40) % [place] % (Auto) 10.7 (3-14) % Eos % (Auto) 0.8 L (2-4) % Baso % (Auto) 0.4 (0-2) % Neut # (Auto) 7300 H (4338-6189) /uL Lymph # (Auto) 3000 (9337-5037) /uL [place] # (Auto) 1200 H (0-900) /uL Eos # (Auto) 100 (0-450) /uL Baso # (Auto) 0 (0-100) /uL Sodium 139 (137-145) mmol/L Potassium 4.0 (3.4-5.1) mmol/L Chloride 103 (98-107) mmol/L Carbon Dioxide 22 (22-32) mmol/L BUN 9 (7-17) mg/dL Creatinine 0.50 L (0.52-1.04) mg/dL Estimated GFR > 60.0 (>60) mL/min BUN/Creatinine Ratio 18.0 (6-22) Glucose 81 (70-100) mg/dL Calcium 8.8 (8.4-10.2) mg/dL Total Bilirubin 0.2 (0.2-1.3) mg/dL AST 29 (14-36) IU/L ALT 28 (9-52) IU/L Alkaline Phosphatase 57 (38-126) U/L Total Protein 8.1 (6.3-8.2) g/dL Albumin 4.5 (3.5-5.0) g/dL Globulin 3.6 (1.7-4.1) g/dL Albumin/Globulin Ratio 1.3 (1.0-2.8) HCG, Quant 909392 mIU/mL Urine RBC 0-1/hpf (0-5/HPF) Urine WBC 0-1/hpf (0-5/HPF) Ur Squamous Epith Cells 1-5 /hpf Urine Bacteria Few (2-10) H (None) Ur Culture Indicated? Specimen cultured Blood Type 08/08/18 Range/Units 23:40 WBC (4.5-11.0) X10^3/uL RBC (4.0-5.2) X10^6/uL Hgb (12.0-16.0) g/dL Hct (36-46) % MCV (80-100) fL MCH (26-34) PG MCHC (30-36) % RDW (11.6-14.8) % Plt Count (150-400) X10^3/uL Neut % (Auto) (50-75) % Lymph % (Auto) (25-40) % [place] % (Auto) (3-14) % Eos % (Auto) (2-4) % Baso % (Auto) (0-2) % Neut # (Auto) (3431-9056) /uL Lymph # (Auto) (2165-7249) /uL [place] # (Auto) (0-900) /uL Eos # (Auto) (0-450) /uL Baso # (Auto) (0-100) /uL Sodium (137-145) mmol/L Potassium (3.4-5.1) mmol/L Chloride (98-107) mmol/L Carbon Dioxide (22-32) mmol/L BUN (7-17) mg/dL Creatinine (0.52-1.04) mg/dL Estimated GFR (>60) mL/min BUN/Creatinine Ratio (6-22) Glucose (70-100) mg/dL Calcium (8.4-10.2) mg/dL Total Bilirubin (0.2-1.3) mg/dL AST (14-36) IU/L ALT (9-52) IU/L Alkaline Phosphatase (38-126) U/L Total Protein (6.3-8.2) g/dL Albumin (3.5-5.0) g/dL Globulin (1.7-4.1) g/dL Albumin/Globulin Ratio (1.0-2.8) HCG, Quant mIU/mL Urine RBC (0-5/HPF) Urine WBC (0-5/HPF) Ur Squamous Epith Cells Urine Bacteria (None) Ur Culture Indicated? 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 It also appears that she may have a slight UTI as well. At this time recommended follow-up with her OB in regards to vaginal bleeding. Unfortunately patient left without her prescription for UTI, we tried calling of patient is by all numbers listed unfortunately no way to leave a voicemail, stating that the caller is simply unavailable. Discharge Plan Departure Patient Disposition: Home Clinical Impression: , threatened Discharge Date/Time: 08/09/18 01:34 Interventions: ED Discharge Assessment Last Done: 08/09/18 01:32 Instructions: DI for Threatened Activity Restrictions/Additional Instructions: *You have been diagnosed with threatened *What to do: HCG 175,650, ultrasound confirms a live intrauterine . Pelvic rest, nothing in her out of vagina *Continue to take medications as directed Continue vitamins *Follow up with your primary care provider in 2-3 days *Return to ER if you should have increasing abdominal pain, increasing vaginal bleeding or any new, worsening or concerning symptoms Prescriptions: New cephalexin [Keflex] 500 mg capsule 500 mg PO TID Qty: 15 RF: 0 No Action ALBUTEROL SULFATE (Ventolin / Proventil) 2 puff INH Q4H PRN Qty: 0 RF: 0 Fluticasone Propionate/Salme (Advair Diskus 250/50) Qty: 0 RF: 0
[2018-08-08] MEDS: SODIUM CHLORIDE 0.9% 1,000 ML 1000 ML IV (23:50)
[2018-08-08 23:52] LABS: Add Manual Diff / Slide Review NO; Basophils Absolute Auto 0 /uL (0-100); Basophils Percent Auto 0.4 % (0-2); Eosinophils Absolute Auto 100 /uL (0-450); Eosinophils Percent Auto 0.8 % (2-4); Hematocrit 36.6 % (36-46); Hemoglobin 12.4 g/dL (12.0-16.0); Lymphocytes Absolute Auto 3000 /uL (1100-4500); Lymphocytes Percent Auto 25.7 % (25-40); Mean Corpuscular HGB Conc 33.9 % (30-36); Mean Corpuscular Hemoglobin 30.9 PG (26-34); Mean Corpuscular Volume 91.1 fL (80-100); Monocytes Absolute Auto 1200 /uL (0-900); Monocytes Percent Auto 10.7 % (3-14); Neutrophils Absolute Auto 7300 /uL (1500-7000); Neutrophils Percent Auto 62.4 % (50-75); Platelet Count 311 X10^3/uL (150-400); Red Blood Cell Count 4.02 X10^6/uL (4.0-5.2); Red Cell Distribution Width 12.8 % (11.6-14.8); White Blood Cell Count 11.7 X10^3/uL (4.5-11.0)
[2018-08-09 00:06] LABS: Alanine Aminotransferase 28 IU/L (9-52); Albumin 4.5 g/dL (3.5-5.0); Albumin Globulin Ratio 1.3 (1.0-2.8); Alkaline Phosphatase 57 U/L (38-126); Aspartate Aminotransferase 29 IU/L (14-36); Bilirubin Total 0.2 mg/dL (0.2-1.3); Blood Urea Nitrogen 9 mg/dL (7-17); Calcium 8.8 mg/dL (8.4-10.2); Carbon Dioxide 22 mmol/L (22-32); Chloride 103 mmol/L (98-107); Estimated Glomerular Filt Rate > 60.0 mL/min (>60); Globulin 3.6 g/dL (1.7-4.1); Glucose 81 mg/dL (70-100); HEMOLYSIS < 15 (0-50); Sodium 139 mmol/L (137-145); Total Protein 8.1 g/dL (6.3-8.2)
[2018-08-09 00:19] VITALS: BP 107/50; PULSE 81; RESP 20; O2SAT 100
[2018-08-09 00:46] LABS: HCG Quantitative /Beta subunit 175650 mIU/mL
[2018-08-09 01:32] VITALS: BP 107/52; PULSE 81; RESP 20; TEMP 36.9; O2SAT 99
== END 2018-08-09 01:34 | disposition home or self-care (01) ==
LOC: ED 08-09 02:37
PROVIDERS: Emergency Provider Emergency Medicine; Family Provider Family Medicine
DX: O20.0 Threatened abortion (principal)
CPT/HCPCS: 36591; 76801; 76817; 80053; 81003; 81015; 84702; 85025; 87077; 87086; 96360; 99283; 99284

== ENCOUNTER → 2018-08-19 13:23 | Outpatient (CLI) | payer MEDICAID, OTHER, SELFPAY ==
[2018-08-19 17:37] LABS: HIV 1 and 2 Antibody NEGATIVE (NEGATIVE); Hep C Virus Ab w/Reflex Quant NEGATIVE s/c (NEGATIVE); Hepatitis B Surface Antigen NEGATIVE s/c (NEGATIVE); Rubella Antibody IgG 18.5 IU/mL (>15)
[2018-08-21 14:41] LABS: RPR Screen Nonreactive (Nonreactive)
== END ==
PROVIDERS: Visit Provider Specialist
DX: Z34.91 Encounter for supervision of normal pregnancy, unspecified, first trimester (principal)
CPT/HCPCS: 36415; 86592; 86703; 86762; 86787; 86803; 86850; 87340

== ENCOUNTER → 2018-09-24 11:26 | Outpatient (CLI) | payer MEDICAID, OTHER, SELFPAY ==
[2018-09-30 09:05] LABS: AFP, Serum 28.8 ng/mL; Calc Gestational Age 15.3; Cigarette Smoker N; Donated Egg NOT GIVEN; Donor Egg Age NOT GIVEN; Estriol, Free 1.19 ng/mL; Inhibin A, Dimeric 338 pg/mL; Maternal Ethnicity OTHER; Maternal Weight 121 lbs; Number of Fetuses NOT GIVEN; Previous Pregnancy Down Syndro NOT GIVEN; hCG, MoM 1.07; hCG, Serum 53.1 IU/mL
== END ==
PROVIDERS: Visit Provider Specialist
DX: Z34.02 Encounter for supervision of normal first pregnancy, second trimester (principal); Z3A.15 15 weeks gestation of pregnancy
CPT/HCPCS: 36415; 82105; 82677; 84702; 86336

== ENCOUNTER → 2018-11-18 12:05 | Outpatient (CLI) | payer MEDICAID, OTHER, SELFPAY ==
--- NOTE | 2018-11-18 12:06 | DI.US.S_ITS ---
PROCEDURE: US OB >= 14 WEEKS FETUS INDICATIONS: 20 WEEK ANATOMY OUTSIDE/PRIOR DATING DATA: Last menstrual period (LMP): None. LMP-based estimated date of delivery (LOPEZ): Unknown. First dating scan (date and location): 07/26/18. Estimated date of delivery (LOPEZ) from first dating scan: 03/16/19. TECHNIQUE: Real-time scanning was performed of the fetus, with image documentation and biometric measurements. Endovaginal scanning: Not performed COMPARISON: [facility], OB < 14 WEEKS, 08/23/2018, 16:09. [facility] OB <= 14 WEEKS FETUS, 08/08/2018, 23:52. [facility] OB <= 14 WEEKS FETUS, 07/26/2018, 17:09. [facility], OB >= 14 WEEKS FETUS, 10/18/2018, 10:57. FINDINGS: General: A single living intrauterine gestation is present. Presentation: Transverse, head maternal right. Placenta: Placental position is fundal/anterior, without previa. Amniotic fluid index: 20.8 cm, normal range is 5-24 cm. heart rate: 145 beats per minute. Maternal cervical canal: 3.7 cm long. Normal lower limit is 2.5 cm. biometrics: Biparietal diameter: 5.9 cm, 24 weeks 2 days Head circumference: 21.8 cm, 23 weeks 6 days Abdominal circumference: 19.2 cm, 23 weeks 6 days Femur length: 4.1 cm, 23 weeks 2 days Estimated gestational age from initial scan: 23 weeks one day Composite gestational age from present scan: 23 weeks 4 days Estimated weight and percentile: 618 g, 69th percentile Measurement variability for biometric dating: +/- 7 days from 14 weeks to 15 weeks 6 days gestation, +/- 10 days from 16 weeks to 21 weeks 6 days gestation, +/- 2 weeks from 22 weeks to 27 weeks 6 days gestation, +/- 3 weeks for 28 weeks gestation or later. weight reference: 4500 g or EFW >90/95% is considered macrosomia or large for gestational age. EFW <10% is small for gestational age. EFW 5% or less is considered intra-uterine growth restriction. Anatomic survey: Neuro: Ventricles are non-dilated at less than 10 mm. Cisterna magna is normal at 3-11 mm. Cerebellum is normal in size and morphology. Nuchal skin fold: Normal at less than 6 mm between 14-21 weeks gestational age. Face: Nose and lips, facial profile are normal. Spine: Not well-visualized due to gestational position Heart: 4-chambered heart is present, with normal ventricular outflow tracts. Diaphragm: Diaphragm is intact. Stomach: Left-sided stomach is present. Kidneys: No hydronephrosis. Normal is less than 5 mm in 2nd trimester, less than 7 mm in 3rd trimester. Cord: 3-vessel cord has orthotopic insertion. Bladder: Normal in size. Extremities: All 4 extremities identified. IMPRESSION: Single living intrauterine fetus in transverse presentation demonstrating expected interval growth as above. spine not well visualized due to gestational position. Remaining anatomic survey within normal limits. Dictated by: Markell Young M.D. on 11/18/2018 at 16:16 Approved by: Markell Young M.D. on 11/18/2018 at 16:19
== END ==
PROVIDERS: Visit Provider Specialist
DX: Z34.02 Encounter for supervision of normal first pregnancy, second trimester (principal); Z3A.23 23 weeks gestation of pregnancy
CPT/HCPCS: 76811

== ENCOUNTER 2018-12-02 21:23 | Emergency (ER) | payer MEDICAID, OTHER, SELFPAY ==
[2018-12-02 21:28] VITALS: BP 95/45; PULSE 109; RESP 18; TEMP 36.7; O2SAT 98
--- NOTE | 2018-12-02 21:49 | ED.URI ---
HPI - URI/Sore Throat General Chief Complaint: Upper Respiratory Symptoms Stated Complaint: cough chest pain 24wks Time Seen by Provider: 12/02/18 21:30 Source: patient and family Mode of arrival: ambulatory Limitations: no limitations History of Present Illness HPI Narrative: 23-year-old female nonsmoker is a at 24 weeks with unremarkable thus far. Patient has a runny nose, nasal congestion, head pressure and cough for the past few days. She denies any production to her cough and has no fever or chills. She denies dizziness, weakness or lightheadedness. She does have a sharp and stabbing anterior chest pain with cough. MD Complaint: cough, rhinorrhea and nasal congestion Onset (ago): day(s) Duration: constant Severity: moderate Relieving factors: nothing Description of mucous: clear Able to tolerate fluids by mouth: Yes Associated symptoms: rhinorrhea Related Data Home Medications Medication Instructions Recorded Confirmed ALBUTEROL SULFATE (Ventolin / 2 puff INH Q4H PRN #0 08/21/10 Proventil) Fluticasone Propionate/Salme #0 08/21/10 (Advair Diskus 250/50) doxylamine succinate 25 mg tablet 25 mg PO BEDTIME PRN 08/19/18 08/19/18 pyridoxine (vitamin B6) 50 mg 50 mg PO DAILY 08/19/18 08/19/18 capsule Previous Rx's Medication Instructions Recorded 1 tab PO DAILY #90 tab 08/23/18 vitamin,calcium,tdrzzjvc-bheq-nkbla acid tablet ondansetron 4 mg disintegrating 4 mg PO Q6-8H PRN #20 tab 09/24/18 tablet omeprazole 20 mg capsule,delayed 20 mg PO DAILY #30 cap 11/14/18 release Allergies Allergy/AdvReac Type Severity Reaction Status Date / Time amoxicillin AdvReac Verified 08/08/18 23:00 Penicillins AdvReac Verified 08/08/18 23:00 Review of Systems Constitutional Denies chills, Denies fever(s), Denies lethargy and Denies weakness Eyes Denies change in vision, Denies eye discharge, Denies irritation and Denies loss of vision ENT Ears, Nose, Mouth, and Throat: Denies change in voice, Denies neck pain, Reports sinus pressure and Denies sore throat Cardiovascular Reports chest pain, Denies irregular heart rhythm, Denies lightheadedness, Denies palpitations, Denies dyspnea, Denies dyspnea on exertion and Denies orthopnea Respiratory Reports cough, Denies dyspnea, Denies dyspnea on exertion and Denies wheezing Gastrointestinal Gastrointestinal: Denies abdominal pain, Denies change in bowel habits, Denies diarrhea, Denies nausea and Denies vomiting Genitourinary Denies hematuria, Denies flank pain, Denies urinary incontinence and Denies urinary urgency Musculoskeletal Denies neck pain Integumentary/Breasts Denies pruritus, Denies erythema, Denies rash and Denies wounds Neurologic Denies confusion, Denies loss of vision and Denies weakness Psychiatric Denies anxiety, Denies confusion, Denies depression, Denies homicidal ideation and Denies suicidal ideation Endocrine Denies palpitations Hematologic/Lymphatic Denies easy bruising Allergic/Immunologic Denies wheezing [facility] Medical History Patient denies medical problems (Acute) Social History Smoking Status: Never smoker Social History Smoking Status: Never smoker Exam Narrative Exam Narrative: GEN: AOx3 and in mild distress EYES: Pupils are equal, round, and reactive to light and accommodation. Extraoccular muscles are intact bilaterally. There is no subconjunctival hemorrhage or exudate. ENT: clear nasal drainage. Clear post nasal drip. CHEST: Sharp stabbing pain is reproducible on palpation Lungs are clear to auscultation bilaterally and free of wheezes, rales, or rhonchi. Heart rate is regular rhythm, there are no murmurs, clicks, rubs, or gallops. There is no chest wall tenderness. ABD: Abdomen is soft and nontender. There is no guarding or rebound. Bowel sounds are normal in all 4 quadrants. There is no mass or organomegaly. EXT: Full painless ROM of all extremities with no loss of sensation or strength. SKIN: Warm, pink, and dry. No erythema or rash Initial Vital Signs Initial Vital Signs: Vital Signs Temperature 98.0 F 12/02/18 21:28 Pulse Rate 109 H 12/02/18 21:28 Respiratory Rate 18 12/02/18 21:28 Blood Pressure 95/45 L 12/02/18 21:28 Pulse Oximetry 98 12/02/18 21:28 Course Vital Signs - 8 hr 12/02/18 21:28 Temperature 98.0 F Pulse Rate 109 H Respiratory Rate 18 Blood Pressure 95/45 L Pulse Oximetry 98 Discharge Plan Departure Patient Disposition: Home Clinical Impression: Acute costochondritis Upper respiratory infection Qualifiers: URI type: unspecified viral URI Qualified Code(s): J06.9 - Acute upper respiratory infection, unspecified Discharge Date/Time: 12/02/18 22:07 Interventions: ED Discharge Assessment Last Done: 12/02/18 22:04 Instructions: DI for Costochondritis Activity Restrictions/Additional Instructions: *You have been diagnosed with [ acute viral upper respiratory infection and chest wall pain ] *What to do: *Take medications as directed: Over the counter tylenol is recommended for the treatment of your headache and chest wall pain. Over the counter antihistamines such as benadryl (diphenhydramine) or zyrtec (cetirizine) will help dry the secretions which are the likely cause of your headache, nasal congestion, and cough. *Follow up with your primary care provider in 2-3 days, call for an appointment. Let them know you were seen in the Emergency Department and that we ask that you be seen in follow up *Return to ER if you should have any new, worsening or concerning symptoms, such as [cough with bloody sputum, worsening chest pain, shortness of breath or other bothersome symptoms ] Prescriptions: No Action ALBUTEROL SULFATE (Ventolin / Proventil) 2 puff INH Q4H PRN Qty: 0 RF: 0 Fluticasone Propionate/Salme (Advair Diskus 250/50) Qty: 0 RF: 0 Unisom (doxylamine) 25 mg tablet 25 mg PO BEDTIME PRNRF: 0 pyridoxine (vitamin B6) 50 mg capsule 50 mg PO DAILY RF: 0 ondansetron 4 mg tablet,disintegrating 4 mg PO Q6-8H PRN (Reason: nausea and vomiting) Qty: 20 RF: 2 omeprazole 20 mg capsule,delayed release(DR/EC) 20 mg PO DAILY Qty: 30 RF: 3 prenat.vits,abbie,dpc-yfuv-kmwjd tablet 1 tab PO DAILY Qty: 90 RF: 3
== END 2018-12-02 22:07 | disposition home or self-care (01) ==
PROVIDERS: Emergency Provider Emergency Medicine
DX: J06.9 Acute upper respiratory infection, unspecified (principal); M94.0 Chondrocostal junction syndrome [Tietze]; Z33.1 Pregnant state, incidental
CPT/HCPCS: 99282

== ENCOUNTER → 2018-12-13 12:13 | Outpatient (CLI) | payer MEDICAID, OTHER, SELFPAY ==
[2018-12-13 14:35] LABS: Hematocrit 32.7 % (36-46)
[2018-12-13 14:57] LABS: GTT (PREG) 1 Hour PP 50gm Dose 70 mg/dL (76-139)
[2018-12-13 16:40] LABS: Urine N gonorrhoeae NOT DETECTED
[2018-12-13 16:41] LABS: Urine Chlamydia NOT DETECTED
== END ==
PROVIDERS: Visit Provider Specialist
DX: Z34.03 Encounter for supervision of normal first pregnancy, third trimester (principal)
CPT/HCPCS: 36415; 82950; 85014; 85018; 87491; 87591

== ENCOUNTER → 2019-02-21 14:41 | Outpatient (CLI) | payer MEDICAID, OTHER, SELFPAY ==
[2019-02-22 15:22] LABS: Strep Grp B PCR NEG for Grp B Strep
== END ==
PROVIDERS: Visit Provider Specialist
DX: Z34.83 Encounter for supervision of other normal pregnancy, third trimester (principal); Z3A.35 35 weeks gestation of pregnancy
CPT/HCPCS: 87653

== ENCOUNTER 2019-02-27 07:17 | Outpatient (CLI) | payer MEDICAID, OTHER, SELFPAY ==
--- NOTE | 2019-02-27 09:25 | PM.OBTRLD ---
Visit Information Visit Information Date of evaluation: 02/27/19 Primary OB Provider: Radha Bautista Reason for Evaluation: Yes other Comments/Additional reasons for admission: Patient with breech presentation at last office visit was scheduled for version today Vital Signs Vital Signs: Blood pressure 106/60 PFSH Social History Smoking Status: Never smoker Evaluation Evaluation Baseline heart rate: 130 Variability: Moderate (11-25) monitor accelerations: Present monitor decelerations: Absent Contraction Frequency (minutes): 0 Comments: Ultrasound the infant is now vertex Diagnosis, Plan/Disposition Plan/Disposition Plan: Patient with breech presentation on last office visit now vertex no need for version at this time OB Disposition: home
== END 2019-02-27 07:50 | disposition home or self-care (01) ==
LOC: OB 03-04 13:40
PROVIDERS: Visit Provider Specialist
DX: O32.1XX0 Maternal care for breech presentation, not applicable or unspecified (principal)
CPT/HCPCS: 59025; 76815; G0378; G0379

== ENCOUNTER 2019-03-10 13:47 | Outpatient (CLI) | payer MEDICAID, OTHER, SELFPAY | END 2019-03-10 14:00 | disposition home or self-care (01) | LOC: LABOR 14:19 → OB 03-13 07:46 | PROVIDERS: Visit Provider Specialist | DX: O48.0 Post-term pregnancy (principal); Z3A.41 41 weeks gestation of pregnancy | CPT/HCPCS: 59025; G0378; G0379 ==

== ENCOUNTER 2019-03-17 13:48 | Outpatient (CLI) | payer MEDICAID, OTHER, SELFPAY ==
--- NOTE | 2019-03-17 14:14 | P.TNLD_ITS ---
Visit Information Visit Information Date of evaluation: 03/17/19 Primary OB Provider: Radha Bautista Reason for Evaluation: Yes non-stress test non-stress test reason: other (Postdates) [facility] Medical History (Updated 03/17/19 @ 14:15 by Radha Bautista MD) Breech presentation (Acute) Patient denies medical problems (Acute) Social History Smoking Status: Never smoker Social History Smoking Status: Never smoker Evaluation Evaluation Baseline heart rate: 130 Variability: Moderate (11-25) monitor accelerations: Present monitor decelerations: Absent Contraction Frequency (minutes): 0 Category of Tracing: I Diagnosis, Plan/Disposition Final Diagnosis (1) Post-dates : Current Visit: Yes Status: Acute Plan/Disposition Plan: Reactive nonstress test. Patient is scheduled for postdates induction tomorrow night OB Disposition: home
== END 2019-03-17 14:20 | disposition home or self-care (01) ==
LOC: OB 03-18 13:18
PROVIDERS: Visit Provider Specialist
CPT/HCPCS: 59025; G0378; G0379

== ENCOUNTER 2019-03-18 18:49 | Inpatient (IN) | payer MEDICAID, OTHER, SELFPAY ==
[2019-03-18] MEDS: miSOPROStol 25 MCG TABLET VAG (19:40)
[2019-03-18] MEDS: ZOLPIDEM 5 MG TABLET PO (23:16)
[2019-03-18 23:32] LABS: Add Manual Diff / Slide Review NO; Basophils Absolute Auto 0 /uL (0-100); Basophils Percent Auto 0.6 % (0-2); Eosinophils Absolute Auto 100 /uL (0-450); Eosinophils Percent Auto 0.8 % (2-4); Hematocrit 29.9 % (36-46); Lymphocytes Absolute Auto 2000 /uL (1100-4500); Lymphocytes Percent Auto 23.5 % (25-40); Mean Corpuscular HGB Conc 33.3 % (30-36); Mean Corpuscular Hemoglobin 27.2 PG (26-34); Mean Corpuscular Volume 81.6 fL (80-100); Monocytes Absolute Auto 400 /uL (0-900); Monocytes Percent Auto 5.3 % (3-14); Neutrophils Absolute Auto 5800 /uL (1500-7000); Neutrophils Percent Auto 69.8 % (50-75); Platelet Count 313 X10^3/uL (150-400); Red Blood Cell Count 3.66 X10^6/uL (4.0-5.2); White Blood Cell Count 8.3 X10^3/uL (4.5-11.0)
[2019-03-19 00:22] VITALS: BP 116/80
--- NOTE | 2019-03-19 08:08 | PM.OBHP.1 ---
OB HPI Date/Time Date of admission: 03/18/19 Date Patient Seen: 03/19/19 Time Patient Seen: 08:08 History of Present Condition Chief complaint: OBSERVATION : 1 Para: 0 Estimated Date of Delivery: 03/11/19 Estimated Gestational Age (weeks): 41 Narrative: Magalie Higgins is a 23 year old female admitted for postdates induction Indications Indication for induction OB: post dates History of Present care: good care, initiated at week # (11), number of visits (13) and pounds weight gain (24) Dating criteria: LMP confirmed by 1st trimester US Ultrasounds: normal mid trimester US Obstetrical complications: none Medical complications: none Preadmission Labs Blood type: O (+) positive -: Antibody screen: negative, GBS status: negative, HBsAG: negative, HIV: negative and RPR/VDLR: negative -: Chlamydia screen: not detected and Gonorrhea screen: not detected -: Rubella: immune and Varicella: immune HCAB: negative PAP: Normal Quad screen: Normal 1 hr GTT: 70 Evaluation Evaluation Baseline heart rate: 145 Variability: Moderate (11-25) monitor accelerations: Present monitor decelerations: Absent Contraction Frequency (minutes): 5 Uterine Contraction Intensity: Mild Category of Tracing: I Cervical dilation (cm): 2 Cervical effacement (%): 50 station: -2 Laboratory results: Laboratory Tests 03/18/19 03/18/19 23:05 23:05 WBC 8.3 RBC 3.66 L Hgb 10.0 L Hct 29.9 L MCV 81.6 MCH 27.2 MCHC 33.3 RDW 14.0 Plt Count 313 Neut % (Auto) 69.8 Lymph % (Auto) 23.5 L [place] % (Auto) 5.3 Eos % (Auto) 0.8 L Baso % (Auto) 0.6 Neut # (Auto) 5800 Lymph # (Auto) 2000 [place] # (Auto) 400 Eos # (Auto) 100 Baso # (Auto) 0 Blood Type O Positive Antibody Screen Negative [facility] Medical History (Updated 03/19/19 @ 08:20 by Radha Bautista MD) Patient denies medical problems (Acute) Social History Smoking Status: Never smoker Social History (Reviewed 12/03/18 @ 01:32 by BERE Sorensen Smoking Status: Never smoker Meds Home Medications and Allergies Home Medications Medication Instructions Recorded Confirmed Type prenat.vits,abbie,dky-zgac-zzjkn 1 tab PO DAILY #90 tab 08/23/18 Rx Allergies Allergy/AdvReac Type Severity Reaction Status Date / Time amoxicillin AdvReac Verified 08/08/18 23:00 Penicillins AdvReac Verified 08/08/18 23:00 Review of Systems Review of Systems Narrative: Good movement no rupture membranes no signs or symptoms of preeclampsia ROS Unobtainable: All systems reviewed & are unremarkable except as noted in HPI and below Exam Vital Signs (past 8 hours): Blood pressure 97/53, pulse 68, temperature 36.1?- 03/19/19 00:22 Blood Pressure 116/80 Narrative Exam Narrative: HEENT exam within normal limits except for poor dentition. No thyromegaly. Lungs are clear to auscultation percussion. Heart is regular rate and rhythm no S3-S4 murmurs. Fetus is vertex. Cervix still unfavorable after prostaglandins so Coelho bulb was placed through the cervical os and inflated with 30 cc of saline. Extremities without edema and nontender, normal DTRs. Objective Labs Result Diagrams: 03/18/19 23:05 Labs: Laboratory Results - last 24 hr 03/18/19 03/18/19 23:05 23:05 WBC 8.3 RBC 3.66 L Hgb 10.0 L Hct 29.9 L MCV 81.6 MCH 27.2 MCHC 33.3 RDW 14.0 Plt Count 313 Neut % (Auto) 69.8 Lymph % (Auto) 23.5 L [place] % (Auto) 5.3 Eos % (Auto) 0.8 L Baso % (Auto) 0.6 Neut # (Auto) 5800 Lymph # (Auto) 2000 [place] # (Auto) 400 Eos # (Auto) 100 Baso # (Auto) 0 Blood Type O Positive Antibody Screen Negative Assessment and Plan Assessment and Plan Assessment and Plan narrative: 41 week gestation for postdates induction she received Cytotec overnight with some minimal change in her cervix. Coelho bulb was placed and she will be begun on Pitocin.
[2019-03-19] MEDS: LACTATED RINGERS 1,000 ML 100 ML IV ×3 (09:03→18:07)
[2019-03-19] MEDS: OXYTOCIN PREMIX 30 UNIT/500 ML PLAST..BAG IV (09:03)
[2019-03-19] MEDS: fentaNYL 100 MCG/2 ML INJ IV ×2 (12:58→14:02)
--- NOTE | 2019-03-19 22:45 | PM.OBPRVD ---
Labor & Delivery Delivery date: 03/19/19 Intrapartal events: Extended Tachycardia Cervical ripening method: per misoprostal protocol (Followed by Coelho bulb) Induction method: per pitocin protocol Delivery augmentation: rupture of membranes Delivery monitor: external FHT and external uterine Route of delivery: vacuum extraction Indication for instrumentation: nonreassuring FHR tracing L&D Laceration Description: Vaginal - 2nd Degree (Bilateral) Delivery repair: chromic (3-0) Estimated blood loss (mL): 300 Anesthesia type: Epidural Narrative: Patient was admitted for induction for 41 weeks gestation. The patient received Cytotec beginning on 03/18/2019. She was willie mildly but still had a very thick cervix. Coelho bulb was placed and it fell out of 2 hours later. She was a round for meconium-stained fluid. Pitocin was started. Patient received an epidural catheter for pain control. The initial part of labor heart tones were category 1 to category 2. Patient had slow progress from 7 cm to complete. In that time the heart tones baseline increased to 180. There were deep and late decelerations with pushing. Mother was afebrile. Decision was made to expedite delivery. Initial attempt was to place forceps but I could not place them appropriately so that was abandoned. The vacuum was placed with the 1st placement not staying in place due to the amount of hair. A 2nd vacuum was placed and with a total of 3 pushes the babies head was delivered to the perineum. The head was delivered. There was approximately 1 minute shoulder dystocia however most of that was probably due to the ineffective pushing by the mother. The was delivered and initially placed on maternal abdomen but was quickly placed on the warmer. Resuscitation was performed. The placenta delivered spontaneously, intact, with 3 vessels. Patient had second-degree bilateral sidewall vaginal tears that were repaired with 3 0 chromic sutures. Estimated blood loss 300 cc. The was returned from the warmer and both infant and mother doing well. Baby weighed 8 lb 3 oz. [place] Baby 1: Infant gender: Female Presentation: vertex position: Right Occiput Anterior Placenta delivery description: Spontaneous cord vessel description: 3 Vessels score (1 min): 6 score (5 min): 8 Plan for aftercare: Routine post care
[2019-03-20] MEDS: IBUPROFEN 600 MG TABLET PO ×2 (02:25→08:07)
[2019-03-20 05:18] LABS: Basophils Absolute Auto 100 /uL (0-100); Basophils Percent Auto 0.3 % (0-2); Eosinophils Absolute Auto 0 /uL (0-450); Hematocrit 23.9 % (36-46); Lymphocytes Absolute Auto 1200 /uL (1100-4500); Lymphocytes Percent Auto 4.8 % (25-40); Mean Corpuscular HGB Conc 33.4 % (30-36); Mean Corpuscular Hemoglobin 26.8 PG (26-34); Mean Corpuscular Volume 80.4 fL (80-100); Monocytes Absolute Auto 1500 /uL (0-900); Monocytes Percent Auto 6.2 % (3-14); Neutrophils Absolute Auto 22100 /uL (1500-7000); Neutrophils Percent Auto 88.7 % (50-75); Red Blood Cell Count 2.97 X10^6/uL (4.0-5.2); Red Cell Distribution Width 14.1 % (11.6-14.8)
[2019-03-20 06:34] LABS: Add Manual Diff / Slide Review SLIDE REVIEW
[2019-03-20 06:36] LABS: Platelet Estimate Adequate on smear; RBC Morphology Normal Morphology
[2019-03-20 06:37] LABS: Platelet Count 234 X10^3/uL (150-400)
--- NOTE | 2019-03-20 07:52 | PM.OBDS.1 ---
Discharge Providers Provider Date of admission: 03/18/19 18:49 Discharge Date: 03/20/19 Consults: 03/20/19 00:22 Consult to Guest Associate Routine Comment: Discharge provider: Radha Bautista MD Summary Discharge Diagnosis (1) Vacuum-assisted vaginal delivery: Status: Acute (2) Anemia: Status: Acute (3) Post-dates : Status: Resolved Time Spent with Patient Time attestation: Total time spent providing and/or coordinating discharge services: Objective Labs Result Diagrams: 03/20/19 04:45 Labs: Laboratory Results - last 24 hr 03/20/19 04:45 WBC 25.0 H D RBC 2.97 L Hgb 8.0 L Hct 23.9 L MCV 80.4 MCH 26.8 MCHC 33.4 RDW 14.1 Plt Count 234 Neut % (Auto) 88.7 H Lymph % (Auto) 4.8 L [place] % (Auto) 6.2 Eos % (Auto) 0.0 L Baso % (Auto) 0.3 Neut # (Auto) 72016 H Lymph # (Auto) 1200 [place] # (Auto) 1500 H Eos # (Auto) 0 Baso # (Auto) 100 Platelet Estimate Adequate on smear RBC Morphology Normal morphology Exam Vital Signs (past 8 hours): Blood pressure 98/57, pulse of 87, temperature 97? point Narrative Exam Narrative: Patient's abdomen is soft, nontender. Uterus is firm, at U, nontender. Patient has labial swelling, mild lochia. Extremities without edema and nontender. Discharge Plan Discharge Med Rec/Prescriptions Prescriptions: New ibuprofen 600 mg Tablet 600 mg PO Q6HR PRN (Reason: Pain, Mild (1-3)) Qty: 20 RF: 0 Continued prenat.vits,abbie,bqc-vczd-mzuba tablet 1 tab PO DAILY Qty: 90 RF: 3 Follow up/Referrals: Radha Bautista MD [Physician] - 1 Month Discharge Orders: Discharge (Order); Ordered 03/20/19 Ordered By: Radha Bautista Provider Discharge Instructions Diet: Regular Activity: Nothing in vagina for 4 weeks Skin/Wound/Dressing Care Report to your healthcare provider any signs of infection, such as:: chills, fever and increased pain Discharge Data Attending Provider: Radha Bautista Admit Date/Time: 03/18/19 18:49
[2019-03-20] MEDS: DOCUSATE 250 MG CAPSULE PO (08:07)
[2019-03-20] MEDS: DERMOPLAST SPRAY 20% 60 ML 1 SPRAY TOP (08:07)
[2019-03-20 08:37] VITALS: BP 107/67; PULSE 106; RESP 17; TEMP 36.9
== END 2019-03-20 09:51 | disposition home or self-care (01) | DRG 807 ==
PROVIDERS: Admitting Provider Specialist; Visit Provider Specialist
DX: O48.0 Post-term pregnancy (principal); Z37.0 Single live birth; Z3A.41 41 weeks gestation of pregnancy; O76 Abnormality in fetal heart rate and rhythm complicating labor and delivery; O77.0 Labor and delivery complicated by meconium in amniotic fluid; O66.0 Obstructed labor due to shoulder dystocia; O70.1 Second degree perineal laceration during delivery; O99.02 Anemia complicating childbirth
CPT/HCPCS: 01967; 36415; 59025; 59050; 59410; 85025; 86850; 86900; 86901; G0379; J2590; J3010

== ENCOUNTER → 2020-12-14 17:02 | Outpatient (CLI) | payer MEDICAID, OTHER, SELFPAY ==
--- NOTE | 2020-12-14 | DI.RAD.S_ITS ---
PROCEDURE: XR ABDOMEN 1V INDICATIONS: abdominal cramping TECHNIQUE: One view of the abdomen acquired. COMPARISON: None. FINDINGS: Surgical changes and devices: None. Bowel: Bowel gas pattern is normal except for right and transverse colonic mild obstipation. Soft tissues: No suspicious abdominal calcifications. Visualized solid organ contours appear normal in size. Bones: No suspicious bony lesions. IMPRESSION: Mild colonic obstipation, no sign of intestinal obstruction or perforation. Dictated by: August Davidson M.D. on 12/15/2020 at 7:28 Approved by: August Davidson M.D. on 12/15/2020 at 7:29
== END ==
PROVIDERS: Referring Provider Family Medicine; Visit Provider Family Medicine
DX: R10.9 Unspecified abdominal pain (principal); K59.00 Constipation, unspecified
CPT/HCPCS: 74018

== ENCOUNTER 2021-05-12 09:34 | Emergency (ER) | payer MEDICAID, OTHER, SELFPAY ==
[2021-05-12 09:38] VITALS: BP 128/89; PULSE 96; RESP 14; TEMP 36.6; O2SAT 98; BMI 23.0
[2021-05-12 10:34] LABS: COVID19 -Nasal RAPID Negative (Negative)
--- NOTE | 2021-05-12 10:34 | ED_ITS ---
HPI - URI/Sore Throat General Chief Complaint: Upper Respiratory Symptoms Stated Complaint: Cough, sore throat x 5 days Time Seen by Provider: 05/12/21 10:12 Source: patient Mode of arrival: Ambulatory Limitations: no limitations History of Present Illness HPI Narrative: Patient is a 25-year-old female no medical history presenting today with 2 days of body aches cough and sore throat. She is fully vaccinated with COVID. She has mild headache. She with the cough seems to be the worst. She is short of breath only when she coughs. She is not coughing anything up. Related Data Previous Rx's Medication Instructions Recorded prenat.vits,abbie,tjv-nuiu-gsyqf 1 tab PO DAILY #90 tab 08/23/18 ibuprofen 600 mg tablet 600 mg PO Q6HR PRN #20 tab 03/20/19 albuterol sulfate 90 mcg/actuation 2 puff INHALATION Q4-6H PRN #8.5 05/12/21 aerosol inhaler gram Allergies Allergy/AdvReac Type Severity Reaction Status Date / Time amoxicillin AdvReac Verified 05/12/21 09:44 Penicillins AdvReac Verified 05/12/21 09:44 Review of Systems Review of Systems Narrative: GENERAL: Denies chills,fever HEENT: See HPI RESPIRATORY: Denies dyspnea, cough, wheezing CARDIOVASCULAR: Denies chest pain, palpitations GASTROINTESTINAL: Denies nausea, vomiting MUSCULOSKELETAL: Denies extremity pain, injury SKIN: No rash, no laceration, no pruritus NEUROLOGIC: Denies weakness, dizziness, headache, numbness 8 point review of systems is negative except for those stated above and HPI Patient History Medical History Patient denies medical problems Vacuum-assisted vaginal delivery Social History Smoking Status: Never smoker Smoking Status: Never smoker alcohol intake frequency: holidays/special occasions only Substance Use Type: does not use Exam Initial Vital Signs Initial Vital Signs: Vital Signs Temperature 97.9 F 05/12/21 09:38 Pulse Rate 96 H 05/12/21 09:38 Respiratory Rate 14 05/12/21 09:38 Blood Pressure 128/89 05/12/21 09:38 Pulse Oximetry 98 05/12/21 09:38 GENERAL: 25-year-old female appears to not feel well HEENT: Head atraumatic,EOMI, pupils reactive, face symmetric, neck supple PHARYNX: No erythema, no tonsillar exudate, no cervical lymphadenopathy CARDIOVASCULAR: Regular rate and rhythm without murmurs, rubs or gallops. RESPIRATORY: Breath sounds equal bilaterally, no wheezes rales or rhonchi. EXTREMITIES: Normal range of motion, no clubbing or edema. Neurovascularly intact NEUROLOGICAL: Alert and oriented x4. SKIN: Warm, dry, no laceration, no petechiae, no rashes or lesions. Course Orders Ordered: ED Orders 05/12/21 10:13 COVID19 -Nasal swab/Pre-Proc Stat Vital Signs Vital signs: Vital Signs - 8 hr 05/12/21 09:38 05/12/21 10:52 Temperature 97.9 F Pulse Rate 96 H 77 Respiratory Rate 14 Blood Pressure 128/89 112/69 Pulse Oximetry 98 98 MDM - URI/Sore Throat Lab Data Labs: Lab Results 05/12/21 Range/Units 10:13 SARS-CoV-2 (PCR) Negative (Negative) Point of Care Testing Rapid Strep A Negative MDM Narrative Medical decision making narrative: Patient has mild upper respiratory like symptoms negative strep and negative COVID. No significant shortness of breath. She is given albuterol spacer and teaching and I recommend she have repeat COVID testing in about 2-3 days. Discharge Plan Departure Patient Disposition: Home Clinical Impression: Upper respiratory infection Instructions: Common Cold Activity Restrictions/Additional Instructions: *You have been diagnosed with upper respiratory infection *What to do: At this time likely have a viral infection. However I do recommend that you be retested for COVID in about 3 days specially fever still having symptoms. Today your COVID test and strep test are negative. Recommend hot tea with honey to help with cough in soothe your throat. *Continue to take medications as directed Albuterol inhaler 1-2 puffs only if needed for coughing--> SENT TO [facility] *Follow up with your primary care provider in 2-3 days *Return to ER if you should have increasing shortness of breath, fever, body aches or any new, worsening or concerning symptoms Prescriptions: New albuterol sulfate 90 mcg/actuation HFA aerosol inhaler 2 puff INHALATION Q4-6H PRN (Reason: shortness of breath or wheezing) Qty: 8.5 RF: 0 No Action prenat.vits,abbie,fzq-jznc-rvemz tablet 1 tab PO DAILY Qty: 90 RF: 3 ibuprofen 600 mg Tablet 600 mg PO Q6HR PRN (Reason: Pain, Mild (1-3)) Qty: 20 RF: 0
[2021-05-12 10:52] VITALS: BP 112/69; PULSE 77; O2SAT 98
== END 2021-05-12 10:53 | disposition home or self-care (01) ==
PROVIDERS: Emergency Provider Emergency Medicine
DX: J06.9 Acute upper respiratory infection, unspecified (principal); Z20.822 Contact with and (suspected) exposure to COVID-19
CPT/HCPCS: 87635; 87880; 99281; 99282; C9803

== ENCOUNTER 2022-06-17 14:44 | Emergency (ER) | payer MEDICAID, OTHER, SELFPAY ==
[2022-06-17 14:49] VITALS: BP 100/68; PULSE 98; RESP 18; TEMP 37.8; O2SAT 97; BMI 22.8
[2022-06-17 15:16] VITALS: TEMP 37.8
[2022-06-17] MEDS: IBUPROFEN 400 MG TABLET 800 MG PO (15:16)
--- NOTE | 2022-06-17 15:32 | ED_ITS ---
HPI - URI/Sore Throat General Chief Complaint: Upper Respiratory Symptoms Stated Complaint: covid+ & abd pain, difficulty breathing Time Seen by Provider: 06/17/22 15:11 Source: patient Mode of arrival: Ambulatory History of Present Illness HPI Narrative: 26-year-old female nonsmoker with history of bronchospasm presents with a chief complaint of various upper respiratory symptoms including mild headache, sore throat and nasal congestion as well as a dry hacking cough and body aches. She states that she is had symptoms for the past few days and tested herself at home today for COVID and was found to be positive. She states that her ribs hurt bilaterally when she takes a deep breath or when she coughs. She states the cough brings up no sputum but hurts. She denies any hemoptysis. She is not significantly short of breath but just feels under the weather. She is not dizzy or lightheaded. She is had no vomiting or diarrhea. She denies any dysuria, frequency or urgency. She has taken no medication at home Related Data Previous Rx's Medication Instructions Recorded prenat.vits,abbie,blx-qzoz-fzfpb 1 tab PO DAILY #90 tabs 08/23/18 ibuprofen 600 mg tablet 600 mg PO Q6HR PRN Pain, Mild 03/20/19 (1-3) #20 tabs albuterol sulfate 90 mcg/actuation 2 puff inhalation Q4-6H PRN 05/12/21 aerosol inhaler shortness of breath or wheezing #8.5 grams albuterol sulfate 90 mcg/actuation 2 puff inhalation Q4H PRN 06/17/22 breath activated powder inhaler shortness of breath or wheezing #1 ea benzonatate 200 mg capsule 200 mg PO BID PRN cough #20 caps 06/17/22 ondansetron 4 mg disintegrating 4 mg PO TID-QID PRN nausea and 06/17/22 tablet vomiting #10 tabs Allergies Allergy/AdvReac Type Severity Reaction Status Date / Time amoxicillin AdvReac Verified 06/17/22 14:49 Penicillins AdvReac Verified 06/17/22 14:49 Review of Systems Review of Systems Narrative: GENERAL: See HPI HEENT: See HPI RESPIRATORY: See HPI CARDIOVASCULAR: See HPI GASTROINTESTINAL: See HPI : Denies dysuria, frequency, incontinence, hematuria, urinary retention. MUSCULOSKELETAL: denies weakness, joint pain, or bony pain SKIN: Denies rash, skin lesions, or other NEUROLOGIC: Denies weakness, headache, numbness, change in speech, confusion, seizures, incoordination. PSYCHIATRIC: No concerning psychosocial issues. 12 point review of systems is negative except for those stated above Patient History Medical History Patient denies medical problems Vacuum-assisted vaginal delivery Social History Smoking Status: Never smoker Smoking Status: Never smoker alcohol intake frequency: holidays/special occasions only Substance Use Type: does not use Exam Narrative Exam Narrative: GEN: AOx3 and in mild distress EYES: Pupils are equal, round, and reactive to light and accommodation. Extraoccular muscles are intact bilaterally. There is no subconjunctival hemorrhage or exudate. ENT: CHEST: Lungs are clear to auscultation bilaterally and free of wheezes, rales, or rhonchi. Heart rate is regular rhythm, there are no murmurs, clicks, rubs, or gallops. There is no chest wall tenderness. ABD: Abdomen is soft and nontender. There is no guarding or rebound. Bowel sounds are normal in all 4 quadrants. There is no mass or organomegaly. EXT: Full painless ROM of all extremities with no loss of sensation or strength. SKIN: Warm, pink, and dry. No erythema or rash Initial Vital Signs Initial Vital Signs: Vital Signs Temperature 100.0 F H 06/17/22 14:49 Pulse Rate 98 H 06/17/22 14:49 Respiratory Rate 18 06/17/22 14:49 Blood Pressure 100/68 06/17/22 14:49 Pulse Oximetry 97 06/17/22 14:49 Oxygen Delivery Method 06/17/22 14:49 Course Orders Ordered: Discontinued Medications Ibuprofen (Ibuprofen 400 Mg Tablet) 800 mg PO NOW ONE Stop: 06/17/22 15:12 Last Admin: 06/17/22 15:16 Dose: 800 mg Documented By: ORLANDO Vital Signs Vital signs: Vital Signs - 8 hr 06/17/22 14:49 06/17/22 15:16 Temperature 100.0 F H 100.0 F H Pulse Rate 98 H Respiratory Rate 18 Blood Pressure 100/68 Pulse Oximetry 97 Oxygen Delivery Method Room Air MDM - URI/Sore Throat MDM Narrative Medical decision making narrative: 26-year-old female nonsmoker with reactive airway disease presents with various upper respiratory symptoms and a recent positive COVID test. She has no significant work of breathing, use of accessory muscles or hypoxemia. She has pleuritic-type chest pain associated with a dry and hacking cough. She is not short of breath. She is nauseated but denies any vomiting or diarrhea. She has strong appetite and shows no signs of dehydration such as dry mucous membranes or poor skin turgor. Her vital signs are reassuring. She has been given extensive return precautions and questions have been answered to her apparent satisfaction Discharge Plan Departure Patient Disposition: Home Clinical Impression: COVID-19 Instructions: COVID-19 Activity Restrictions/Additional Instructions: Prescriptions sent to [facility] *You have been diagnosed with [ COVID-19] *What to do: ?* per recommendations from the CDC and the [facility] Department of Health ?* stay home except to get medical care. ?Restrict activities outside your home, except for getting medical care. ?Do not go to work, school, or public areas. ?Avoid using public transportation, ride sharing, or taxis. ?* separate yourself from other people in your home. ?* call ahead before visiting your doctor ?* Wear a facemask ?* Cover your coughs and sneezes ?* Clean your hands often ?* Avoid sharing household items ?* Clean all high-touch services every day ?* Monitor your symptoms and seek prompt medical attention if your illness is worsening, particularly with difficulty in breathing. You may discontinue your isolation when: ?1. You have been fever-free for at least 24 hours without the use of fever reducing medication, AND ?2. Your symptoms are getting better, AND ?3. At least 5 days have passed since symptoms first appeared ?4. If you have fever, continue to stay home until fever resolves Individuals with laboratory confirmed COVID-19 who have not had any symptoms may discontinue home isolation when at least 5 days have passed since the date of their first COVID-19 diagnostic test and have had no subsequent illness You should notifiy any friends and family that have been in close contact *If up to date on COVID Vaccines, then they do not need to quarantine unless symptoms develop. Get tested on day 5 (or sooner if symptoms develop). Take precautions and watch for symptoms until day 10 *If NOT up to date on COVID Vaccines, then CDC recommends quarantine for at least 5 full days. Wear a well fitted mask at home if you must be around others. If they ?develop symptoms they should get tested. If they remain asymptomatic they should get tested on day 5. They should take precautions and monitor for symptoms until day 10. Prescriptions: New benzonatate 200 mg capsule 200 mg PO BID PRN (Reason: cough) Qty: 20 0RF ondansetron 4 mg tablet,disintegrating 4 mg PO TID-QID PRN (Reason: nausea and vomiting) Qty: 10 0RF albuterol sulfate 90 mcg/actuation aerosol powdr breath activated 2 puff INHALATION Q4H PRN (Reason: shortness of breath or wheezing) Qty: 1 0RF Rx Instructions: administer with spacer No Action prenat.vits,abbie,tgd-mtfr-qxwtn tablet 1 tab PO DAILY Qty: 90 3RF albuterol sulfate 90 mcg/actuation HFA aerosol inhaler 2 puff INHALATION Q4-6H PRN (Reason: shortness of breath or wheezing) Qty: 8.5 0RF ibuprofen 600 mg Tablet 600 mg PO Q6HR PRN (Reason: Pain, Mild (1-3)) Qty: 20 0RF
--- NOTE | 2022-06-17 15:56 | PC.NURSE ---
Educated pt on use of spacer per RT. This nurse educated on symptom management and all questions and concerns were addressed. Pt breathing even and unlabored, respirations 16.
== END 2022-06-17 16:00 | disposition home or self-care (01) ==
PROVIDERS: Emergency Provider Emergency Medicine
DX: U07.1 COVID-19 (principal)
CPT/HCPCS: 99282; 99283

== ENCOUNTER 2022-11-09 21:56 | Emergency (ER) | payer MEDICAID, OTHER, SELFPAY ==
[2022-11-09 22:15] VITALS: BP 107/60; PULSE 74; RESP 16; TEMP 36.9; O2SAT 98; BMI 22.8
--- NOTE | 2022-11-09 22:18 | DI.RAD.S_ITS ---
PROCEDURE: XR LUMBAR SPINE 2-3V INDICATIONS: pain after injury TECHNIQUE: 3 views of the lumbar spine were acquired. COMPARISON: None. FINDINGS: Bones: 5 flx-mgf-crhfgaq vertebrae are present. There is preserved bony alignment. No vertebral body compression fractures. The disc spaces are preserved. No suspicious bony lesions. Soft tissues: Overlying bowel gas pattern is normal. No suspicious soft tissue calcifications. IMPRESSION: 1. No fracture or subluxation. Dictated by: Jair Youngblood M.D. on 11/09/2022 at 23:47 Approved by: Jair Youngblood M.D. on 11/09/2022 at 23:48
== END 2022-11-10 01:59 | disposition left against medical advice (07) ==
PROVIDERS: Emergency Provider Emergency Medicine
DX: S39.82XA Other specified injuries of lower back, initial encounter (principal); X50.1XXA Overexertion from prolonged static or awkward postures, initial encounter
CPT/HCPCS: 72100; 99281

== ENCOUNTER 2023-06-14 12:33 | Emergency (ER) | payer MEDICAID, OTHER, SELFPAY ==
[2023-06-14 12:36] VITALS: BP 114/71; PULSE 87; RESP 20; TEMP 36.6; O2SAT 98; BMI 23.3
--- NOTE | 2023-06-14 13:16 | DI.RAD.S_ITS ---
PROCEDURE: XR CHEST 2V INDICATIONS: cough x1 week, assess for pneumonia TECHNIQUE: 2 views of the chest were acquired. COMPARISON: None. FINDINGS: Surgical changes and devices: None. Lungs and pleura: Lungs are clear. No pleural effusions or pneumothorax. Mediastinum: Mediastinal contours are normal. Heart size is normal. Bones and chest wall: No suspicious bony abnormalities. Soft tissues appear unremarkable. IMPRESSION: No acute cardiopulmonary abnormality is seen. Dictated by: Jose Overton M.D. on 06/14/2023 at 13:40 Approved by: Jose Overton M.D. on 06/14/2023 at 13:40
--- NOTE | 2023-06-14 13:53 | ED_ITS ---
HPI - URI/Sore Throat <Paz Webb PA-C - Last Filed: 06/14/23 15:48> General Chief Complaint: Upper Respiratory Symptoms Stated Complaint: coughing up blood/ Sick T-7 Time Seen by Provider: 06/14/23 13:10 Source: patient Mode of arrival: Ambulatory History of Present Illness HPI Narrative: Patient is a 27-year-old female who presents with 6 days of cough and fevers. Her last fever was several days ago but she endorses chills. Her home COVID tests were negative. She was seen in the [facility] several days ago and was told she has a viral upper respiratory infection. She presents today to the emergency room because she noticed bright red blood in her sputum this morning. It occurred one time. She shows me a picture of a blood in the sputum. She endorses a sore throat but denies runny nose, congestion or ear pain. She has had no nausea or vomiting. She does not take any blood thinner medicines. She reports taking dueq-ojp-xbruwxr cold medicines with some improvement in her symptoms. She does not drink alcohol. She has no history of bleeding disorder or GI bleed. She does not smoke or vape. Related Data Previous Rx's Medication Instructions Recorded prenat.vits,abbie,jgg-sjny-ziajg 1 tab PO DAILY #90 tabs 08/23/18 ibuprofen 600 mg tablet 600 mg PO Q6HR PRN Pain, Mild 03/20/19 (1-3) #20 tabs albuterol sulfate 90 mcg/actuation 2 puff inhalation Q4-6H PRN 05/12/21 aerosol inhaler shortness of breath or wheezing #8.5 grams ondansetron 4 mg disintegrating 4 mg PO TID-QID PRN nausea and 06/17/22 tablet vomiting #10 tabs ondansetron 4 mg disintegrating 4 mg PO TID-QID PRN nausea and 06/17/22 tablet vomiting #10 tabs benzonatate 100 mg capsule 100 mg PO TID PRN cough #14 caps 06/14/23 codeine 10 mg-guaifenesin 100 mg/5 10 ml PO Q4-6H PRN cough #118 mL 06/14/23 mL oral liquid Allergies Allergy/AdvReac Type Severity Reaction Status Date / Time amoxicillin AdvReac Verified 11/09/22 22:18 Penicillins AdvReac Verified 11/09/22 22:18 Review of Systems <Paz Webb PA-C - Last Filed: 06/14/23 15:48> Review of Systems ROS Unobtainable: All systems reviewed & are unremarkable except as noted in HPI and below Patient History <Paz Webb PA-C - Last Filed: 06/14/23 15:48> Medical History Vacuum-assisted vaginal delivery Patient denies medical problems Social History Smoking Status: Never smoker Smoking Status: Never smoker alcohol intake frequency: holidays/special occasions only Substance Use Type: does not use Exam <Paz Webb PA-C - Last Filed: 06/14/23 15:48> Narrative Exam Narrative: GENERAL: 27 year old patient appears stated age. Well-developed patient, in no distress. NEURO: AOx3. HEAD: Atraumatic. Normocephalic. EYES: Pupils equal round and reactive. Extraocular motions intact. No scleral icterus. No injection or drainage. ENT: Nose without bleeding or purulent drainage. Throat without erythema, tonsillar hypertrophy or exudate. Airway patent. TMs pearly greer. No bleeding inside the mouth. CARDIAC: Regular rate and rhythm, no murmur gallop or rub. RESPIRATORY: Equal bilateral breath sounds without rhonchi, rales or wheeze. EXTREMITIES: No edema or joint tenderness. SKIN: No rash or erythema of visible areas Initial Vital Signs Initial Vital Signs: Vital Signs Temperature 98 F 06/14/23 12:36 Pulse Rate 87 06/14/23 12:36 Respiratory Rate 20 06/14/23 12:36 Blood Pressure 114/71 06/14/23 12:36 Pulse Oximetry 98 06/14/23 12:36 Oxygen Delivery Method Room Air 06/14/23 12:36 <Jazzmine Thomason DO - Last Filed: 06/15/23 07:50> Initial Vital Signs Initial Vital Signs: Vital Signs Temperature 98 F 06/14/23 12:36 Pulse Rate 87 06/14/23 12:36 Respiratory Rate 20 06/14/23 12:36 Blood Pressure 114/71 06/14/23 12:36 Pulse Oximetry 98 06/14/23 12:36 Oxygen Delivery Method Room Air 06/14/23 12:36 Course <Paz Webb PA-C - Last Filed: 06/14/23 15:48> Orders Ordered: ED Orders 06/14/23 13:16 CXR [XR chest 2V] Stat Vital Signs Vital signs: Vital Signs - 8 hr 06/14/23 12:36 Temperature 98 F Pulse Rate 87 Respiratory Rate 20 Blood Pressure 114/71 Pulse Oximetry 98 Oxygen Delivery Method Room Air <Jazzmine Thmoason DO - Last Filed: 06/15/23 07:50> Orders Ordered: ED Orders 06/14/23 13:16 CXR [XR chest 2V] Stat Vital Signs Vital signs: Vital Signs - 8 hr 06/14/23 12:36 Temperature 98 F Pulse Rate 87 Respiratory Rate 20 Blood Pressure 114/71 Pulse Oximetry 98 Oxygen Delivery Method Room Air MDM - URI/Sore Throat <Paz Webb PA-C - Last Filed: 06/14/23 15:48> Imaging Data Chest x-ray: Radiologist's Impression: PROCEDURE: XR CHEST 2V INDICATIONS: cough x1 week, assess for pneumonia TECHNIQUE: 2 views of the chest were acquired. COMPARISON: None. FINDINGS: Surgical changes and devices: None. Lungs and pleura: Lungs are clear. No pleural effusions or pneumothorax. Mediastinum: Mediastinal contours are normal. Heart size is normal. Bones and chest wall: No suspicious bony abnormalities. Soft tissues appear unremarkable. IMPRESSION: No acute cardiopulmonary abnormality is seen. Dictated by: Jose Overton M.D. on 06/14/2023 at 13:40 Approved by: Jose Overton M.D. on 06/14/2023 at 13:40 [facility] Narrative Medical decision making narrative: Multiple etiologies for patient's symptoms considered including, but not limited to: Viral respiratory illness, pneumonia, blood-streaked sputum due to bronchitis, less likely malignancy. She has no history of GI bleed, easy bleeding or heavy alcohol use which would be concerning for bleeding in the GI tract. Patient with normal vital signs and reassuring physical exam. Chest x-ray without evidence of pneumonia. I suspect patient has bronchitis and the blood- streaked sputum is due to this. I looked at the pictures on her phone and saw approximately 1-2 mL of blood total. She collected sputum while in the emergency department and there was no blood in it. Advised continued supportive care, including rest, adequate hydration, jhde-xzu-pzwyxnd cold medicines, I will also prescribe benzonatate and codeine cough syrup. If patient develops fevers, would be concerned that she had developed a pneumonia and should be reassessed. Patient's symptoms improved over duration of stay with above-stated therapies. Findings and discharge diagnosis discussed with patient/family followed by verbalization of understanding Return precautions discussed with patient/family whom verbalize understanding of diagnosis and plan Discharge Plan Departure Patient Disposition: Home Clinical Impression: Upper respiratory infection, viral, Blood in sputum Instructions: DI for Viral Upper Respiratory Infection -- Adult Activity Restrictions/Additional Instructions: *You have been diagnosed with viral respiratory infection. There is no evidence of pneumonia on your chest x-ray. As we discussed, I believe the blood in your sputum is related to irritation of the large airways due to frequent coughing. This is reararely a serious problem and will resolve as your cough resolves. If you start vomiting blood, having blood in your stool or have difficulty breathing, please return to the emergency department. I will prescribe 2 different cough medicines for you, 1 is a pill that you can take during the day to suppress her cough and the other is a cough syrup you can take at night to help you sleep. The cough syrup for nighttime does contain opiate medication; please be very careful with this medicine and do not combine with other sedating medicines, keep out of the reach of children. *What to do: *Please continue to take your regular medications as directed. [x] New medication prescriptions sent to your pharmacy: [ ] [ ] New medication written as a paper prescription [ ] No new medications given *Please follow up with your primary care provider in 2-3 days, call for an appointment. Let them know you were seen in the Emergency Department and that we ask that you be seen in follow up. We will electronically transmit a record of today's note if your PCP is in our system *If you do not have a primary care provider please contact the [facility] Resource line at [phone]. They will ask some questions about your medical history and help get you set up with a doctor in the community. *Return to Emergency Department if you should have any new, worsening or concerning symptoms, such as [fever greater than 101 F, shaking chills, worsen ing pain, persistent vomiting or other concerning symptoms]. Prescriptions: New benzonatate 100 mg capsule 100 mg PO TID PRN (Reason: cough) Qty: 14 0RF codeine-guaifenesin 10-100 mg/5 mL liquid 10 ml PO Q4-6H PRN (Reason: cough) Qty: 118 0RF Discontinued benzonatate 200 mg capsule 200 mg PO BID PRN (Reason: cough) Qty: 20 0RF albuterol sulfate 90 mcg/actuation aerosol powdr breath activated 2 puff INHALATION Q4H PRN (Reason: shortness of breath or wheezing) Qty: 1 0RF Rx Instructions: administer with spacer benzonatate 200 mg capsule 200 mg PO BID PRN (Reason: cough) Qty: 20 0RF albuterol sulfate 90 mcg/actuation aerosol powdr breath activated 2 puff INHALATION Q4H PRN (Reason: shortness of breath or wheezing) Qty: 1 0RF Rx Instructions: administer with spacer No Action prenat.vits,abbie,imy-atnh-qmiwx tablet 1 tab PO DAILY Qty: 90 3RF albuterol sulfate 90 mcg/actuation HFA aerosol inhaler 2 puff INHALATION Q4-6H PRN (Reason: shortness of breath or wheezing) Qty: 8.5 0RF ibuprofen 600 mg Tablet 600 mg PO Q6HR PRN (Reason: Pain, Mild (1-3)) Qty: 20 0RF ondansetron 4 mg tablet,disintegrating 4 mg PO TID-QID PRN (Reason: nausea and vomiting) Qty: 10 0RF ondansetron 4 mg tablet,disintegrating 4 mg PO TID-QID PRN (Reason: nausea and vomiting) Qty: 10 0RF Referrals: Miscellaneous,Doctor, MD [Primary Care Provider] - Stand Alone Forms: Patient Portal/API ED Sign-out <Jazzmine Thomason DO - Last Filed: 06/15/23 07:50> Cosign ED Attending Agapito Attestation: I was available for consultation.
== END 2023-06-14 14:09 | disposition home or self-care (01) ==
PROVIDERS: Emergency Provider Physician Assistant
DX: J06.9 Acute upper respiratory infection, unspecified (principal); R04.2 Hemoptysis
CPT/HCPCS: 71046; 99283

== ENCOUNTER 2023-08-13 19:15 | Emergency (ER) | payer MEDICAID, OTHER, SELFPAY ==
[2023-08-13 19:28] VITALS: BP 106/67; PULSE 74; RESP 16; TEMP 36.6; O2SAT 99; BMI 23.0
[2023-08-13 22:31] VITALS: BP 105/59; PULSE 74; RESP 18; O2SAT 99
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
[2023-08-13] MEDS: KETOROLAC 30 MG/ML VIAL IM (23:10)
[2023-08-13] MEDS: methocarbamoL 500 MG TABLET 750 MG PO (23:10)
[2023-08-13] MEDS: LIDOCAINE 5% PATCH 1 EACH TOP (23:11)
== END 2023-08-13 23:15 | disposition home or self-care (01) ==
PROVIDERS: Emergency Provider Emergency Medicine
DX: M54.50 Low back pain, unspecified (principal); V89.2XXA Person injured in unspecified motor-vehicle accident, traffic, initial encounter
CPT/HCPCS: 96372; 99283; J1885

== ENCOUNTER 2024-07-28 17:05 | Emergency (ER) | payer MEDICAID, OTHER, SELFPAY ==
[2024-07-28] VITALS (11 sets, daily range): BP systolic 109–124; BP diastolic 56–69; PULSE 60–87; RESP 16; TEMP 36.3; O2SAT 95–100; BMI 25.6
[2024-07-28 17:47] LABS: Pregnancy Test Urine Negative (Negative)
[2024-07-28 17:47] LABS: Add Manual Diff / Slide Review NO; Basophils Absolute Auto 0 /uL (0-100); Basophils Percent Auto 0.8 % (0-2); Eosinophils Absolute Auto 100 /uL (0-450); Eosinophils Percent Auto 1.4 % (2-4); Hematocrit 41.8 % (36-46); Hemoglobin 13.8 g/dL (12.0-16.0); Lymphocytes Absolute Auto 1900 /uL (1100-4500); Lymphocytes Percent Auto 33.7 % (25-40); Mean Corpuscular HGB Conc 33.1 % (30-36); Mean Corpuscular Hemoglobin 31.2 PG (26-34); Mean Corpuscular Volume 94.2 fL (80-100); Monocytes Absolute Auto 600 /uL (0-900); Neutrophils Absolute Auto 3100 /uL (1500-7000); Neutrophils Percent Auto 54.1 % (50-75); Platelet Count 312 X10^3/uL (150-400); Red Blood Cell Count 4.44 X10^6/uL (4.0-5.2); Red Cell Distribution Width 13.4 % (11.6-14.8); White Blood Cell Count 5.8 X10^3/uL (4.5-11.0)
[2024-07-28 18:09] LABS: Bacteria Urine Occasional (0-1); Culture Indicated Urine Specimen Cultured; RBC Urine 0-1/HPF (0-5/HPF); Squamous Epithelial Cell Urine 0-1 /HPF (0-5/HPF); Urine Volume 10mL (spun); WBC Urine 1-5/HPF (0-5/HPF)
[2024-07-28 18:15] LABS: Alanine Aminotransferase 26 IU/L (<35); Albumin 4.8 g/dL (3.5-5.0); Albumin Globulin Ratio 1.3 (1.0-2.8); Alkaline Phosphatase 60 U/L (38-126); Aspartate Aminotransferase 37 IU/L (14-36); BUN Creatinine Ratio 12.1 (6-22); Bilirubin Total 0.6 mg/dL (0.2-1.3); Blood Urea Nitrogen 8 mg/dL (7-17); Calcium 9.9 mg/dL (8.4-10.2); Carbon Dioxide 28 mmol/L (22-32); Chloride 104 mmol/L (98-107); Estimated Glomerular Filt Rate > 60 mL/min (>60); Globulin 3.6 g/dL (1.7-4.1); Glucose 91 mg/dL (70-100); HEMOLYSIS < 15 (0-50); Lipase 107 U/L (23-300); Potassium 3.9 mmol/L (3.4-5.1); Sodium 139 mmol/L (137-145); Total Protein 8.4 g/dL (6.3-8.2)
--- NOTE | 2024-07-28 23:05 | ED_ITS ---
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 Denies cough, chest pain, shortness of breath. Denies painful urination or frequency of urination. No vaginal bleeding. No known history of peptic ulcers, no prior upper abdominal endoscopy, does not recall prior abdominal imaging. No known gallbladder problems. No nausea or vomiting. No loose stools, black or red stools. No recent antibiotics. Related Data Previous Rx's Medication Instructions Recorded prenat.vits,abbie,eka-rdgy-vivyi 1 tab PO DAILY #90 tabs 08/23/18 ibuprofen 600 mg tablet 600 mg PO Q6HR PRN Pain, Mild 03/20/19 (1-3) #20 tabs albuterol sulfate 90 mcg/actuation 2 puff inhalation Q4-6H PRN 05/12/21 aerosol inhaler shortness of breath or wheezing #8.5 grams ondansetron 4 mg disintegrating 4 mg PO TID-QID PRN nausea and 06/17/22 tablet vomiting #10 tabs ondansetron 4 mg disintegrating 4 mg PO TID-QID PRN nausea and 06/17/22 tablet vomiting #10 tabs benzonatate 100 mg capsule 100 mg PO TID PRN cough #14 caps 06/14/23 codeine 10 mg-guaifenesin 100 mg/5 10 ml PO Q4-6H PRN cough #118 mL 06/14/23 mL oral liquid methocarbamol 500 mg tablet 500 mg PO TID #30 tabs 08/13/23 naproxen 375 mg tablet 375 mg PO BID PRN pain #30 tabs 08/13/23 Allergies Allergy/AdvReac Type Severity Reaction Status Date / Time amoxicillin AdvReac Verified 11/09/22 22:18 Penicillins AdvReac Verified 11/09/22 22:18 Patient History Medical History Vacuum-assisted vaginal delivery Patient denies medical problems Social History Smoking Status: Never smoker Smoking Status: Never smoker alcohol intake frequency: holidays/special occasions only Exam Narrative Exam Narrative: GENERAL: Well-developed patient, in mild distress. HEAD: Atraumatic. Normocephalic. EYES: Pupils equal round and reactive. Extraocular motions intact. No scleral icterus. No injection or drainage. ENT: Nose without bleeding, purulent drainage. Throat without erythema, tonsillar hypertrophy or exudate. Airway patent. NECK: Trachea midline. Non tender CARDIOVASCULAR: Regular rate and rhythm without murmurs, gallops, or rubs. RESPIRATORY: Clear to auscultation. Breath sounds equal bilaterally. No wheezes, rales, or rhonchi. GASTROINTESTINAL: Abdomen soft, non-tender, nondistended. Left supraumbilical area small dimple cleft that patient states is residual from feeding tube from prematurity. No discharge from that wound, no erythema, nontender around that area. EXTREMITIES: No edema or joint tenderness. BACK: Nontender without deformity or crepitance. No flank tenderness. NEURO: AOx3. Motor functions grossly nonfocal SKIN: No rash or erythema of visible areas Initial Vital Signs Initial Vital Signs: Vital Signs Temperature 97.4 F L 07/28/24 17:20 Pulse Rate 68 07/28/24 17:20 Respiratory Rate 16 07/28/24 17:20 Blood Pressure 124/66 07/28/24 17:20 Pulse Oximetry 100 07/28/24 17:20 Oxygen Delivery Method Room Air 07/28/24 17:20 Course Orders Ordered: ED Orders 07/28/24 23:12 US abdomen limited Stat Discontinued Medications Al Hydrox/Mg Hydrox/Simethicone (Mag Hydrox/Alum/Simeth 30 Ml Udc) 30 ml PO NOW ONE Stop: 07/28/24 23:14 Last Admin: 07/28/24 23:23 Dose: 30 ml Documented By: JAN Famotidine (Famotidine 20 Mg/2 Ml Vial) 20 mg IV NOW SHO Last Admin: 07/28/24 23:23 Dose: 20 mg Documented By: JAN Ondansetron HCl (Ondansetron 4 Mg/2 Ml Inj) 4 mg IV NOW PRN PRN Reason: Nausea And Vomiting Ondansetron HCl (Ondansetron 4 Mg Odt) 4 mg PO NOW PRN PRN Reason: Nausea And Vomiting Vital Signs Vital signs: Vital Signs - 8 hr 07/28/24 22:30 07/28/24 22:52 07/28/24 22:52 Pulse Rate 72 70 Blood Pressure 117/56 L Pulse Oximetry 98 07/28/24 23:00 07/28/24 23:30 07/28/24 23:31 Pulse Rate 81 87 Blood Pressure 109/69 Pulse Oximetry 97 97 07/28/24 23:31 07/29/24 00:00 07/29/24 00:00 Pulse Rate 77 65 Blood Pressure 112/58 L Pulse Oximetry 98 99 07/29/24 00:30 07/29/24 00:30 07/29/24 01:00 Pulse Rate 57 L 125 H Blood Pressure 100/57 L Pulse Oximetry 97 99 07/29/24 01:00 Pulse Rate Blood Pressure 102/64 Pulse Oximetry MDM - Abdominal Pain Lab Data Attestation: I reviewed the patient's lab results. Lab results narrative: White blood cell count 5800, hemoglobin 13.8, platelets adequate. Basic metabolic panel unremarkable. Liver functions unremarkable, lipase negative. Urine hCG negative. Urine dip negative. 07/28/24 17:35 07/28/24 17:35 Labs: Lab Results 07/28/24 07/28/24 Range/Units 17:35 17:36 WBC 5.8 (4.5-11.0) X10^3/uL RBC 4.44 (4.0-5.2) X10^6/uL Hgb 13.8 (12.0-16.0) g/dL Hct 41.8 (36-46) % MCV 94.2 (80-100) fL MCH 31.2 (26-34) PG MCHC 33.1 (30-36) % RDW 13.4 (11.6-14.8) % Plt Count 312 (150-400) X10^3/uL Neut % (Auto) 54.1 (50-75) % Lymph % (Auto) 33.7 (25-40) % Wright % (Auto) 10.0 (3-14) % Eos % (Auto) 1.4 L (2-4) % Baso % (Auto) 0.8 (0-2) % Neut # (Auto) 3100 (0975-2464) /uL Lymph # (Auto) 1900 (0917-0359) /uL Wright # (Auto) 600 (0-900) /uL Eos # (Auto) 100 (0-450) /uL Baso # (Auto) 0 (0-100) /uL Sodium 139 (137-145) mmol/L Potassium 3.9 (3.4-5.1) mmol/L Chloride 104 (98-107) mmol/L Carbon Dioxide 28 (22-32) mmol/L BUN 8 (7-17) mg/dL Creatinine 0.66 (0.52-1.04) mg/dL Estimated GFR > 60 (>60) mL/min BUN/Creatinine Ratio 12.1 (6-22) Glucose 91 (70-100) mg/dL Calcium 9.9 (8.4-10.2) mg/dL Total Bilirubin 0.6 (0.2-1.3) mg/dL AST 37 H (14-36) IU/L ALT 26 (<35) IU/L Alkaline Phosphatase 60 (38-126) U/L Total Protein 8.4 H (6.3-8.2) g/dL Albumin 4.8 (3.5-5.0) g/dL Globulin 3.6 (1.7-4.1) g/dL Albumin/Globulin Ratio 1.3 (1.0-2.8) Lipase 107 (23-300) U/L Urine RBC 0-1/hpf (0-5/HPF) Urine WBC 1-5/hpf (0-5/HPF) Ur Squamous Epith Cells 0-1 /hpf (0-5/HPF) Urine Bacteria Occasional (0-1) (None) Ur Culture Indicated? Specimen cultured Vol Urine Centrifuged 10ml (spun) Urine Test Negative (Negative) Point of care testing: Urine Dip Bedside Urine Glucose Negative Bedside Urine Bilirubin - Negative Bedside Urine Ketone - Negative Urine Specific [place] 1.005 Bedside Urine Occult Blood - Negative Bedside Urine pH 6.5 Bedside Urine Protein - Negative Bedside Urine Urobilinogen - Negative Bedside Urine Nitrite - Negative Bedside Urine Leukocytes +++ 500 Esterase Imaging Data Right upper quadrant ultrasound abdomen: Radiologist's Impression: [address] [address] Ultrasound Report Signed Patient: Magalie Higgins MR#: [id number] : 1995 Acct:[id number] Age/Sex: 28 / F Date of Service: 07/28/24 Loc: ED Accession Number: [id number] Procedure: US abdomen limited Ordering Provider: Vahid Ponce MD PROCEDURE: US ABDOMEN LIMITED INDICATIONS: RUQ abd pain TECHNIQUE: Real-time scanning was performed of the abdominal and retroperitoneal organs, with image documentation. COMPARISON: None. FINDINGS: Liver: Liver is normal in size and homogeneous in echotexture. Gallbladder: Cholelithiasis No wall thickening. No pericholecystic edema. Negative sonographic Nunn's sign. Biliary ducts: Intrahepatic bile ducts are non-dilated. Extrahepatic bile duct caliber measures 3 mm. Normal is 6-7 mm or less in diameter, or 10 mm or less post-cholecystectomy. Pancreas: Visualized portions of the pancreas are sonographically normal. Miscellaneous: No free abdominal fluid. IMPRESSION: Cholelithiasis without sonographic evidence of acute cholecystitis. Note: Concordant preliminary findings given to ordering ED provider by jackhammer operator at time of imaging completion. Approved by: Stephanie Fleming M.D.,Ph.D. on 07/29/2024 at 0:47 MDM Narrative Medical decision making narrative: 28-year-old female with intermittent upper abdominal discomfort, not responsive to bwcm-ckz-cmillxi antacid, afebrile, sirs screen negative. Screening labs unremarkable. Ultrasound gallbladder requested. IV Pepcid, oral Maalox. HCG negative noted. Ultrasound right upper quadrant shows presence of cholelithiasis, no acute cholecystitis changes. See radiology report. Copy of printed radiology report shared with the patient, with review of findings. She may have symptomatic cholelithiasis, no acute infectious changes around the gallbladder at this time. Consider elective general surgery consultation, contact information for given for local offices, though she might need referral from PCP. Advised to for now avoid fatty foods and dairy products. She could consider use of Pepcid ltmb-nof-ffdgubo antacid if this seems to be an incidental finding, if acid related symptoms are relevant to her upper abdominal discomfort. She seemed to express understanding, had no further questions. Discharged home with family. Return precautions discussed. Discharge Plan Departure Patient Disposition: Home Clinical Impression: Abdominal pain, Cholelithiasis Activity Restrictions/Additional Instructions: Intermittent upper abdominal pain, reassuring abdominal examination tonight. Screening labs unremarkable. Ultrasound of the right upper quadrant of the abdomen was obtained tonight to screen for gallbladder disease. There was indeed presence of gallstones within the gallbladder, however tonight the gallbladder does not appear to look infected or inflamed. No emergent indication to have emergency gallbladder surgery at this time. Your gallstones might however be the source of your intermittent discomfort, you might have symptomatic cholelithiasis/gallstones. Consider general surgery consultation. Clinic contact information provided for local general surgeons, though you might require referral from your primary care provider. For now avoid fatty foods and dairy products that might stimulate the gallbladder. You could consider use of Pepcid/famotidine antacid while your awaiting consultation in follow up, if the gallstones or merely an incidental finding and not related to your discomfort. Follow up with your regular provider to expedite general surgery consultation in follow up. Follow up with General surgery for outpatient consideration of gallbladder surgery. Return earlier to this/nearest emergency department for any change worsening symptoms or any concerns prior Prescriptions: No Action prenat.vits,abbie,aho-dfqk-lkbns tablet 1 tab PO DAILY Qty: 90 3RF albuterol sulfate 90 mcg/actuation HFA aerosol inhaler 2 puff INHALATION Q4-6H PRN (Reason: shortness of breath or wheezing) Qty: 8.5 0RF methocarbamol 500 mg tablet 500 mg PO TID Qty: 30 0RF naproxen 375 mg tablet 375 mg PO BID PRN (Reason: pain) Qty: 30 0RF ibuprofen 600 mg Tablet 600 mg PO Q6HR PRN (Reason: Pain, Mild (1-3)) Qty: 20 0RF ondansetron 4 mg tablet,disintegrating 4 mg PO TID-QID PRN (Reason: nausea and vomiting) Qty: 10 0RF ondansetron 4 mg tablet,disintegrating 4 mg PO TID-QID PRN (Reason: nausea and vomiting) Qty: 10 0RF benzonatate 100 mg capsule 100 mg PO TID PRN (Reason: cough) Qty: 14 0RF codeine-guaifenesin 10-100 mg/5 mL liquid 10 ml PO Q4-6H PRN (Reason: cough) Qty: 118 0RF Referrals: Sam Trinidad MD [Physician] - Meghan Banks MD [Physician] - Ran Goodrich MD [Physician] - Miscellaneous,MD Addison [Primary Care Provider] - Stand Alone Forms: Patient Portal/API/Survey
--- NOTE | 2024-07-28 23:12 | DI.US.S_ITS ---
PROCEDURE: US ABDOMEN LIMITED INDICATIONS: RUQ abd pain TECHNIQUE: Real-time scanning was performed of the abdominal and retroperitoneal organs, with image documentation. COMPARISON: None. FINDINGS: Liver: Liver is normal in size and homogeneous in echotexture. Gallbladder: Cholelithiasis No wall thickening. No pericholecystic edema. Negative sonographic Nunn's sign. Biliary ducts: Intrahepatic bile ducts are non-dilated. Extrahepatic bile duct caliber measures 3 mm. Normal is 6-7 mm or less in diameter, or 10 mm or less post-cholecystectomy. Pancreas: Visualized portions of the pancreas are sonographically normal. Miscellaneous: No free abdominal fluid. IMPRESSION: Cholelithiasis without sonographic evidence of acute cholecystitis. Note: Concordant preliminary findings given to ordering ED provider by electric accounting machine operator at time of imaging completion. Approved by: Stephanie Fleming M.D.,Ph.D. on 07/29/2024 at 0:47
[2024-07-28] MEDS: MAG HYDROX/ALUM/SIMETH 30 ML UDC PO (23:23)
[2024-07-28] MEDS: FAMOTIDINE 20 MG/2 ML VIAL IV (23:23)
[2024-07-29] VITALS: BP 112/58; PULSE 65; O2SAT 99
[2024-07-29 00:30] VITALS: BP 100/57; PULSE 57; O2SAT 97
[2024-07-29 01:00] VITALS: BP 102/64; PULSE 125; O2SAT 99
== END 2024-07-29 01:36 | disposition home or self-care (01) ==
PROVIDERS: Emergency Medicine; Emergency Provider Emergency Medicine
DX: K80.20 Calculus of gallbladder without cholecystitis without obstruction (principal); R10.11 Right upper quadrant pain
CPT/HCPCS: 36415; 76705; 80053; 81003; 81015; 81025; 83690; 85025; 87086; 96374; 99284

== ENCOUNTER 2024-09-02 12:02 | Day surgery (SDC) | payer MEDICAID, OTHER, SELFPAY ==
[2024-08-21 07:33] VITALS: BMI 24.5
[2024-09-02] VITALS (8 sets, daily range): BP systolic 89–116; BP diastolic 48–71; PULSE 54–83; RESP 11–20; TEMP 36.2–36.6; O2SAT 96–99; BMI 24.8
--- NOTE | 2024-09-02 | PATH_ITS ---
[facility] Accession Number: [id number] No. of containers..01 Tissue . 01 Material submitted: . gallbladder - GALLBLADDER . 01 Clinical history: . CALCULUS OF GALLBLADDER WITHOUT CHOLECYSTITIS WITH . 01 Diagnosis: GALLBLADDER, CHOLECYSTECTOMY: Mild chronic calculous cholecystitis and cholesterolosis. Negative for dysplasia and malignancy. MRV 09/05/2024 1444 Local . 01 Electronically signed: . Stef Crocker MD, Pathologist NPI- [id number] . 01 Gross description: . Received in formalin with two patient identifiers and gallbladder, is an intact gallbladder, 7.6 x 3.2 x 3.2 cm, with an unremarkable green-nielsen external surface. The cystic duct margin is inked blue and no pericystic lymph node is identified. The lumen contains a single clear crystalline gallstone, 1.5 cm in greatest dimension admixed with a small amount of green mucoid bile. The mucosa is green and velvety with small yellow areas of discoloration and no polyps or lesions identified. The duque average 0.3 cm thick, and wireless sales representative sections to include the cystic duct margin and full thickness sections are submitted in A1. ([id number]) /MRV 09/04/2024 2129 Local . 01 Pathologist provided ICD-10: K80.20 . 01 CPT . 228795 Specimen Comment: A courtesy copy of this report has been sent to [phone] Performed at: [address] [id number] MD Jair Willis MD Phone: [phone]
[2024-09-02] MEDS: SCOPOLAMINE 1 PATCH TOP (13:03)
[2024-09-02] MEDS: LACTATED RINGERS 1,000 ML 42 ML IV ×2 (13:03→15:41)
[2024-09-02] MEDS: ACETAMINOPHEN IV 1,000 MG/100 ML VIAL 400 MG IV (13:05)
--- NOTE | 2024-09-02 13:09 | PM.PREOP ---
Pre-operative Note COVID-19 COVID-19 status: Not tested Interval Note History & Physical reviewed/Exam performed by Physician: Yes Changes to H&P: No ASA Class (for procedural sedation): II
[2024-09-02] MEDS: CEFAZOLIN 2 GM/100 ML PREMIX 100 ML IV (13:40)
--- NOTE | 2024-09-02 13:44 | SUR.OPER ---
Supine on padded OR bed, head on pillow, arms secured on padded arm boards at <90 degrees abduction, legs uncrossed, safety belt at thigh, tape over blanket over lower legs.
[2024-09-02] MEDS: BUPIVACAINE 0.5% W/ EPI (PF) 30 ML VIAL INJ (13:54)
--- NOTE | 2024-09-02 14:53 | P.OP_ITS ---
Operative Date/Time/Diagnoses Date of procedure: 09/02/24 Time of procedure: 14:53 Pre-op diagnosis: Symptomatic cholelithiasis Post-op diagnosis: same Procedure & Clinicians Procedure: Laparoscopic cholecystectomy Same procedure as scheduled: Yes Surgeon: Sam Trinidad Regulatory Agency Director: Quintin Castro Anesthesia Type: General Operative Notes Procedure in detail: The patient was given preoperative antibiotics. The patient was brought to the operating room and placed on the table in the supine position. General endotracheal anesthesia was induced. The abdomen was prepped and draped. A time-out was performed. We made a 1 cm infraumbilical incision. We dissected down to the base of the umbilical stalk using cautery. We grasped the umbilical stalk with a Karla clamp to elevate the abdominal wall. We scored the fascia in the midline with cautery. We pierced the peritoneum with a Peon clamp. The Aldo port was placed and the abdomen was insufflated to 15 mmHg. A 5 mm 30 degree laparoscopic was inserted. There was no evidence of any injury from the entry. Next, we placed 5 mm ports in the subxiphoid position and right upper quadrant at the midclavicular line and anterior axillary line. The patient was then positioned in reverse Trendelenburg and the table was tilted to the left. The gallbladder was grasped at the dome and retracted cephalad. There were adhesions of visceral adipose tissue attached to the serosa of the gallbladder. These were taken down with a combination of hook cautery and blunt dissection. We then dissected the cystic structures with a combination of hook cautery and blunt dissection. We obtained a critical view. We placed clips on the cystic duct and artery and divided the cystic duct and artery sharply between the clips. The gallbladder was then dissected off the liver and placed in a specimen retrieval bag. We irrigated the right upper quadrant and all the aspirate returned clear. We then removed the 5 mm ports under direct vision we removed the Aldo port. We then injected some local into the fascia and closed the fascia with 2 interrupted 0 Vicryl sutures. The skin incisions were closed with 4-0 Monocryl and Steri-Strips were applied. Band-Aids were applied over th e Steri-Strips. EBL: 20 mL Specimen: Gallbladder and contents Quintin SCHNEIDER provided assistance with exposure, retraction and closure of incisions. Post-operative Condition: stable Disposition: PACU
[2024-09-02] MEDS: hydrOXYzine 50 MG/ML INJ 25 MG IM (15:06)
[2024-09-02] MEDS: ONDANSETRON 4 MG/2 ML INJ IV ×2 (15:08→15:45)
[2024-09-02] MEDS: HYDROMORPHONE 1 MG INJ IV ×2 (15:08→15:14)
[2024-09-02] MEDS: OXYCODONE IR 5 MG TABLET PO (15:45)
--- NOTE | 2024-09-05 23:10 | P.CALLCOV_ITS ---
Call Coverage Note Note Date of Patient Contact: 09/05/24 Time of Patient Contact: 18:00 Narrative of Care Provided: Called from answering service that patient was having nausea. Called number provided ([phone]) and went directly to [email or web address]. Left a message that if Zofran was desired, to call the answering service back and let me know which pharmacy, and that [place] is likely closed on the weekend and I could send it to the secondary pharmacy listed or any pharmacy of choice.
== END 2024-09-02 16:08 | disposition home or self-care (01) ==
PROVIDERS: Referring Provider Surgery; Visit Provider Surgery
PROC: 0FT44ZZ Resection of Gallbladder, Percutaneous Endoscopic Approach (ICD-10-PCS; CPT 47562; principal; 2024-09-02 14:15)
DX: K80.10 Calculus of gallbladder with chronic cholecystitis without obstruction (principal); K82.8 Other specified diseases of gallbladder
CPT/HCPCS: 47562; 81025; J0134; J0690; J1100; J1171; J1885; J2250; J2405; J2704; J3010; J3410